=== PATIENT | male | born 1955 | race Caucasian/White ===

== ENCOUNTER 2017-07-13 19:02 | Outpatient (CLI) ==
[2016-10-17 01:16] VITALS: BMI 27.9
== END 2017-07-13 19:03 | disposition home or self-care (01) ==
LOC: AMBL 19:02
PROVIDERS: ATTEND Family Medicine
DX: J44.9 Chronic obstructive pulmonary disease, unspecified (principal)

== ENCOUNTER 2017-07-21 15:55 | Emergency (ER) ==
[2017-07-21 16:00] VITALS: BP 109/69; TEMP 98.3; BMI 26.3
--- NOTE | 2017-07-21 16:31 | ED.PDOC ---
General ED Provider: Dr. JHON DONAHUE Chief Complaint: Hand Pain/Injury Stated Complaint: Stuck hand into basket and cut his right thumb on a knife in the basket. No loss of sensation, mobility, or ROM. Time Seen by Physician: 16:25 Mode of Arrival: Walk-In Information Source: Patient Primary Care Provider: LU MI Nursing and Triage Documentation Reviewed and Agree: Yes Skin Complaint Exam - Laceration/Abrasion/Hand Complaint/Exam Location of Injury: Right, Digit #1 Mechanism of Injury: Laceration Onset/Duration: 1 hour Symptoms Are: Still present Initial Severity: Moderate Current Severity: Moderate Aggravating: Movement Alleviating: Compression Related History: Reports: Right hand dominant Differential Diagnoses: Laceration (right thumb) Review of Systems - Review Of Systems Constitutional: Reports: No symptoms Musculoskeletal: Reports: No symptoms Skin: Reports: Other (laceration across right thumb IP joint, dorsal side) Neurological: Reports: No symptoms All Other Systems: Reviewed and Negative Past Medical History - Past Medical History Previously Healthy: Yes Endocrine: Reports: Dyslipidemia Cardiovascular: Reports: CAD, [place] Respiratory: Reports: COPD, Asthma Hematological: Reports: None Gastrointestinal: Reports: GERD, Liver Genitourinary: Reports: CKD Neuro/Psych: Reports: CVA, Anxiety, Depression Musculoskeletal: Reports: Arthritis Cancer: Reports: None - Surgical History General Surgical History: Reports: Orthopedic (Rt Hip replaced), Hernia Repair ( Umbilical hernia repair), Other - Family History Family History: Reports: Unknown - Social History Smoking Status: Current every day smoker Hx Substance Use: No Alcohol Screening: Occasionally Lives: With family - Immunizations Tetanus Shot up to Date: Yes Influenza Vaccine within 12 Months: No Pneumococcal Vaccine up to Date: No Physical Exam - Physical Exam Appearance: Well-appearing, No pain distress, Well-nourished Ill-appearing: None Pain Distress: None Musculoskeletal: Normal strength, ROM intact, No edema, No calf tenderness Skin: Warm (horizontal laceration across right thumb IP joint, dorsal side), Dry , Normal color Neurological: Sensation intact, Motor intact, Reflexes intact, Cranial nerves intact, Alert, Oriented Psychiatric: Affect appropriate, Mood appropriate Procedures - Laceration/Wound Repair No standard instances Wound Description: Linear Wound Length (cm): 2 cm Wound Depth: shallow Wound Explored: Clean Wound Irrigated: No Wound Prep: Hibiclens Anesthesia: Lidocaine, Digital nerve block Wound Margins: Flaps aligned Wound Repaired With: Sutures Suture Size and Type: ethilon 4-0 Number of Sutures: 3 (Simple interrupted) Layer Closure?: No Sterile Dressing Applied?: Yes (Topical antibiotic ointment, nonstick gauze, & gauze wrap) Splint Applied?: No Sling Applied?: No Critical Care Note - Critical Care Note Total Time (mins): 0 Course - Course Vital Signs: Temp Pulse Resp BP Pulse Ox 07/21/17 15:55 98.3 F 77 20 109/69 91 L Departure - Departure Time of Disposition: 17:05 Disposition: HOME SELF-CARE Discharge Problem: Laceration of finger of left hand without foreign body Instructions: Finger Laceration (ED) Condition: Good Pt referred to PMD for follow-up: Yes (suture removal in 10 days or sooner if any problems) Additional Instructions: keep clean and relatively dry. Topical antibiotic ointment and bandaid 3 times/ day. Allergies/Adverse Reactions: Allergies No Known Allergies Allergy (Verified 10/16/16 23:04) Home Medications: Ambulatory Orders Budesonide/Formoterol Fumarate [Symbicort 160-4.5 Mcg Inhaler] 2 puff IH BID Clonazepam [Klonopin] 0.5 mg PO BID PRN 01/16/14 Finasteride [Proscar] 5 mg PO DAILY 01/16/14 Hydrocodone/Acetaminophen [Hydrocodon-Acetaminophen 5-325] 2 each PO QID Ipratropium/Albuterol Sulfate [Combivent Respimat Inhal [place]] 2 puff IH QID Isosorbide Mononitrate [Isosorbide Mononitrate ER] 30 mg PO DAILY 01/16/14 Tamsulosin HCl [Flomax] 0.4 mg PO BID 01/16/14 Tiotropium [place] [Spiriva] 1 cap IH DAILY 01/16/14 Cholecalciferol (Vitamin D3) [Vitamin D3] 2,000 unit PO DAILY 08/24/14 Theophylline Anhydrous [Theophylline] 200 mg PO BID 08/24/14 Roflumilast [Daliresp] 500 mcg PO DAILY 12/10/14 Fluticasone Propionate [Flonase] 1 spray INH DAILY 04/10/15 Aspirin [Aspirin Chewable] 81 mg PO DAILYWM 10/05/15 Albuterol Sulfate 0.083% Neb [Albuterol 0.083% Neb] 1 vial NEB RTQ6H PRN Albuterol Sulfate [Proair Hfa] 2 puff IH Q4H 10/17/16 Atorvastatin Calcium [Lipitor] 40 mg PO QPM 10/17/16 Metoprolol Tartrate [Lopressor] 12.5 mg PO BID 10/17/16 Omeprazole [Prilosec] 40 mg PO QDAC 10/17/16 Methylprednisolone [Medrol Dosepak] 0 mg PO DIRECTED #1 tab.ds.pk 10/20/16 Cephalexin [Keflex] 500 mg PO BID #10 capsule 07/21/17 Disposition Discussed With: Patient
[2017-07-21] MEDS ORDERED: LIDOCAINE HCL 1% SDV SUBCUT STA (17:20)
[2017-07-21] MEDS ORDERED: LIDOCAINE HCL 1% SDV ONE (17:33)
== END 2017-07-21 17:26 | disposition home or self-care (01) ==
LOC: ED 15:55
DX: S61.011A Laceration without foreign body of right thumb without damage to nail, initial encounter (principal); W26.0XXA Contact with knife, initial encounter; F17.210 Nicotine dependence, cigarettes, uncomplicated
CPT/HCPCS: 96372; 99283

== ENCOUNTER 2017-11-04 10:57 | Outpatient (CLI) | END 2017-11-04 11:16 | disposition home or self-care (01) | LOC: AMBL 10:57 | PROVIDERS: ATTEND Emergency Medicine | DX: R06.02 Shortness of breath (principal); R09.89 Other specified symptoms and signs involving the circulatory and respiratory systems; R53.1 Weakness; J44.9 Chronic obstructive pulmonary disease, unspecified ==

== ENCOUNTER 2017-11-10 08:57 | Emergency (ER) ==
[2017-11-10 09:03] VITALS: TEMP 97.7; BMI 27.2
--- NOTE | 2017-11-10 09:29 | ED.PDOC ---
General ED Provider: Dr. 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 He has sustained an abrassion on the left forearm with some hematoma. State the swelling was worse now better. Denies any other injuries. Time Seen by Physician: 09:00 Mode of Arrival: Walk-In Information Source: Patient Primary Care Provider: LU MANUEL Nursing and Triage Documentation Reviewed and Agree: Yes Reviewed sepsis parameters & appropriate labs ordered?: Yes System Inflammatory Response Syndrome: Not Applicable Sepsis Protocol: For patient's 13 years and over: Temp is 96.8 and below OR 101 and greater Pulse >90 BPM Resp >20/minute Acutely Altered Mental Status Are patient's symptoms suggestive of a new infection, such as: -Pneumonia -Skin, Soft Tissue -Endocarditis -UTI -Bone, Joint Infection -Implantable Device -Acute Abdominal Infection -Wound Infection -Meningitis -Blood Stream Catheter Infection -Unknown System Inflammatory Response Syndrome: Not Applicable Skin Complaint Exam - Lac/Torso/Upper Ext. Complaint/Exam Location of Injury: Left, Forearm Mechanism of Injury: Laceration, Abrasion Onset/Duration: 1 hour Symptoms Are: Still present Initial Severity: Severe Current Severity: Mild Aggravating: Movement Alleviating: Compression Associated Signs and Symptoms: Denies: Fever, Chills, Erythema, Numbness, Tingling Related History: Denies: Anticoagulant use, Occupational injury Upper Extremity/Torso Picture: 1 - 8 cm long irregular skin Abrassions. Differential Diagnoses: Laceration Review of Systems - Review Of Systems Constitutional: Reports: No symptoms Eyes: Reports: No symptoms Ears, Nose, Mouth, Throat: Reports: No symptoms Respiratory: Reports: No symptoms Cardiac: Reports: No symptoms GI: Reports: No symptoms : Reports: No symptoms Musculoskeletal: Reports: No symptoms Skin: Reports: Bruising Neurological: Reports: Anxiety Endocrine: Reports: No symptoms Hematologic/Lymphatic: Reports: No symptoms All Other Systems: Reviewed and Negative Past Medical History - Past Medical History Previously Healthy: Yes Endocrine: Reports: Dyslipidemia Cardiovascular: Reports: CAD, [place] Respiratory: Reports: COPD, Asthma Hematological: Reports: None Gastrointestinal: Reports: GERD, Liver, Other (Multple Colon polyps ) Genitourinary: Reports: CKD Neuro/Psych: Reports: CVA, Anxiety, Depression Musculoskeletal: Reports: Arthritis Cancer: Reports: None - Surgical History General Surgical History: Reports: Orthopedic (Rt Hip replaced), Hernia Repair ( Umbilical hernia repair), Other (colonoscopy ) - Family History Family History: Reports: Unknown - Social History Smoking Status: Current every day smoker, Light tobacco smoker Hx Substance Use: No Alcohol Screening: Occasionally - Immunizations Tetanus Shot up to Date: Yes (2016) Influenza Vaccine within 12 Months: No Pneumococcal Vaccine up to Date: No Physical Exam - Physical Exam Appearance: Well-appearing, No pain distress, Well-nourished Pain Distress: Mild Skin: Warm, Dry Neurological: Cranial nerves intact, Alert, Oriented Psychiatric: Anxious Procedures - Laceration/Wound Repair Left Forearm Wound Description: Irregular Wound Length (cm): 8 Wound Width: 0.5 Wound Depth: 0.2 Wound Explored: Clean Wound Irrigated: No Wound Prep: Hibiclens Wound Repaired With: Steri-strips (10) Sterile Dressing Applied?: Yes Critical Care Note - Critical Care Note Total Time (mins): 0 Course - Course Vital Signs: Temp Pulse Resp BP Pulse Ox 11/10/17 09:35 122/75 11/10/17 08:57 97.7 F 99 H 20 161/71 H 94 L Departure - Departure Time of Disposition: 09:47 Disposition: HOME SELF-CARE Discharge Problem: Contusion Qualifiers: Encounter type: initial encounter Contusion area: forearm Laterality: left Qualified Code(s): S50.12XA - Contusion of left forearm, initial encounter Instructions: Laceration (ED), Contusion in Adults (ED), Abrasion (ED) Condition: Stable Pt referred to PMD for follow-up: Yes IPMP verified?: No Additional Instructions: Take over the counter medications for pain Keep steri strips dry Follow up with PCP in 3 days Return if worse May use ICE Allergies/Adverse Reactions: Allergies No Known Allergies Allergy (Verified 11/10/17 09:06) Home Medications: Ambulatory Orders Budesonide/Formoterol Fumarate [Symbicort 160-4.5 Mcg Inhaler] 2 puff IH BID Clonazepam [Klonopin] 0.5 mg PO BID PRN 01/16/14 Finasteride [Proscar] 5 mg PO DAILY 01/16/14 Hydrocodone/Acetaminophen [Hydrocodon-Acetaminophen 5-325] 2 each PO QID Ipratropium/Albuterol Sulfate [Combivent Respimat Inhal [place]] 2 puff IH QID Isosorbide Mononitrate [Isosorbide Mononitrate ER] 30 mg PO DAILY 01/16/14 Tamsulosin HCl [Flomax] 0.4 mg PO BID 01/16/14 Tiotropium [place] [Spiriva] 1 cap IH DAILY 01/16/14 Cholecalciferol (Vitamin D3) [Vitamin D3] 2,000 unit PO DAILY 08/24/14 Theophylline Anhydrous [Theophylline] 200 mg PO BID 08/24/14 Roflumilast [Daliresp] 500 mcg PO DAILY 12/10/14 Fluticasone Propionate [Flonase] 1 spray INH DAILY 04/10/15 Aspirin [Aspirin Chewable] 81 mg PO DAILYWM 10/05/15 Albuterol Sulfate 0.083% Neb [Albuterol 0.083% Neb] 1 vial NEB RTQ6H PRN Albuterol Sulfate [Proair Hfa] 2 puff IH Q4H 10/17/16 Atorvastatin Calcium [Lipitor] 40 mg PO QPM 10/17/16 Metoprolol Tartrate [Lopressor] 12.5 mg PO BID 10/17/16 Omeprazole [Prilosec] 40 mg PO QDAC 10/17/16 Disposition Discussed With: Patient, Family
[2017-11-10 09:42] VITALS: BP 122/75
== END 2017-11-10 09:57 | disposition home or self-care (01) ==
LOC: ED 08:57
DX: S51.812A Laceration without foreign body of left forearm, initial encounter (principal); S50.12XA Contusion of left forearm, initial encounter; W19.XXXA Unspecified fall, initial encounter; F17.210 Nicotine dependence, cigarettes, uncomplicated
CPT/HCPCS: 99283

== ENCOUNTER 2018-04-02 13:13 | Emergency (ER) ==
[2018-04-02 13:18] VITALS: BP 101/64; TEMP 98.7; BMI 26.1
[2018-04-02] MEDS ORDERED: ASPIRIN CHEWABLE PO STA (14:11)
[2018-04-02] MEDS ORDERED: ASPIRIN CHEWABLE ONE (14:13)
--- NOTE | 2018-04-02 14:25 | ED.PDOC ---
General ED Provider: Dr. YASEMIN MIRELES Chief Complaint: Shortness of Air Stated Complaint: Has been Dyspneic for 24 hrs which worsened Last evening associated with Diaphoresis. Denies Chest pain but states noted aching with RUE aching pain.Came to ER for evaluation and treatment Time Seen by Physician: 13:35 Mode of Arrival: Walk-In Information Source: Patient Exam Limitations: No limitations Primary Care Provider: KYLER ARCE Nursing and Triage Documentation Reviewed and Agree: Yes Reviewed sepsis parameters & appropriate labs ordered?: Yes System Inflammatory Response Syndrome: Not Applicable Sepsis Protocol: For patient's 13 years and over: Temp is 96.8 and below OR 101 and greater Pulse >90 BPM Resp >20/minute Acutely Altered Mental Status Are patient's symptoms suggestive of a new infection, such as: -Pneumonia -Skin, Soft Tissue -Endocarditis -UTI -Bone, Joint Infection -Implantable Device -Acute Abdominal Infection -Wound Infection -Meningitis -Blood Stream Catheter Infection -Unknown Respiratory Complaint Exam - Shortness of Air Complaint/Exam Symptoms Are: Still present Timing: Constant Initial Severity: Mild Current Severity: Moderate Character: Reports: Dyspnea at rest, Dyspnea on exertion, Orthopnea Aggravating: Reports: Recumbent position Alleviating: Reports: None Associated Signs and Symptoms: Reports: Diaphoresis, Dizziness, Edema. Denies: Cough, Wheezing, Chest pain with cough, Chest pain, Fever, Chills, Nasal congestion, Calf pain, Calf swelling, Rapid breathing, Labored breathing, Decreased intake Related History: Denies: Similar episode, Allergic reaction, Recent trauma, Obesity History of Healthcare-Acquired Pneumonia: No Pulmonary Embolism Risk Factors: Reports: None Cardiac Risk Factors: Reports: CAD, Smoking, Elevated lipids, Hypertension Tuberculosis Risk Factors: Reports: None Home Oxygen Use: No Recent Stress Test: No (Unknown) Recent Echo/LV Function: No (Unknown) Stridor Present: No Tracheal Deviation: No Subcutaneous Emphysema: No Accessory Muscle Use: No Diminished Breath Sounds: Yes Prolonged Expiratory Phase: No Unable to Speak Full Sentences: No Fatigue: No Leg Swelling: No Hector's Sign Present: No Grunting Respirations: No Kussmaul Respirations: No Differential Diagnoses: CHF, COPD Exacerbation, [place], Unstable Angina Quality Indicator For Non-Traumatic Chest Pain/Syncope: EKG Performed Related Surgical History: Reports: None Review of Systems - Review Of Systems Constitutional: Reports: No symptoms Eyes: Reports: No symptoms Ears, Nose, Mouth, Throat: Reports: No symptoms Respiratory: Reports: No symptoms, Short of air Cardiac: Reports: No symptoms, Other (diaphoresis). Denies: Palpitations GI: Reports: No symptoms : Reports: No symptoms Musculoskeletal: Reports: No symptoms Skin: Reports: No symptoms Neurological: Reports: No symptoms Endocrine: Reports: No symptoms Hematologic/Lymphatic: Reports: No symptoms All Other Systems: Reviewed and Negative Past Medical History - Past Medical History Previously Healthy: Yes Endocrine: Reports: Dyslipidemia Cardiovascular: Reports: CAD, [place] Respiratory: Reports: COPD, Asthma Hematological: Reports: None Gastrointestinal: Reports: GERD, Liver, Other (Multple Colon polyps ) Genitourinary: Reports: CKD Neuro/Psych: Reports: CVA, Anxiety, Depression Musculoskeletal: Reports: Arthritis Cancer: Reports: None - Surgical History General Surgical History: Reports: Orthopedic (Rt Hip replaced), Hernia Repair ( Umbilical hernia repair), Other (colonoscopy ) - Family History Family History: Reports: Unknown - Social History Smoking Status: Current every day smoker, Light tobacco smoker Hx Substance Use: No Alcohol Screening: Occasionally - Immunizations Influenza Vaccine within 12 Months: No Pneumococcal Vaccine up to Date: No Physical Exam - Physical Exam Appearance: Ill-appearing, Obese Ill-appearing: Severe Pain Distress: Mild Eyes: GREG, EOMI, Conjunctiva clear ENT: Ears normal, Nose normal, Oropharynx normal Respiratory: Airway patent, Breath sounds clear, Breath sounds diminished, Respirations nonlabored Cardiovascular: RRR, Pulses normal, No rub, No murmur GI/: Soft Musculoskeletal: Normal strength Skin: Warm Neurological: Sensation intact, Motor intact, Reflexes intact, Cranial nerves intact, Alert, Oriented Psychiatric: Affect appropriate, Mood appropriate Critical Care Note - Critical Care Note Total Time (mins): 30 (Cardiac/AMI/Stat Transfer/Cardiac phone consult) Course - Course Vital Signs: Temp Pulse Resp BP Pulse Ox 04/02/18 13:14 98.7 F 92 H 20 101/64 93 L Departure - Departure Time of Disposition: 14:25 Disposition: TSF SHORT-TRM HOSP Discharge Problem: STEMI (ST elevation myocardial infarction) Condition: Fair Pt referred to PMD for follow-up: No IPMP verified?: No (N/I) Additional Instructions: Discussed with Dr Dolly Guzman/accepted transfer Nursing staff coordinated Transfer Allergies/Adverse Reactions: Allergies No Known Allergies Allergy (Verified 04/02/18 13:19) Home Medications: Ambulatory Orders Budesonide/Formoterol Fumarate [Symbicort 160-4.5 Mcg Inhaler] 2 puff IH BID Clonazepam [Klonopin] 0.5 mg PO BID PRN 01/16/14 Finasteride [Proscar] 5 mg PO DAILY 01/16/14 Hydrocodone/Acetaminophen [Hydrocodon-Acetaminophen 5-325] 2 each PO QID Ipratropium/Albuterol Sulfate [Combivent Respimat Inhal [place]] 2 puff IH QID Isosorbide Mononitrate [Isosorbide Mononitrate ER] 30 mg PO DAILY 01/16/14 Tamsulosin HCl [Flomax] 0.4 mg PO BID 01/16/14 Tiotropium [place] [Spiriva] 1 cap IH DAILY 01/16/14 Cholecalciferol (Vitamin D3) [Vitamin D3] 2,000 unit PO DAILY 08/24/14 Theophylline Anhydrous [Theophylline] 200 mg PO BID 08/24/14 Roflumilast [Daliresp] 500 mcg PO DAILY 12/10/14 Fluticasone Propionate [Flonase] 1 spray INH DAILY 04/10/15 Aspirin [Aspirin Chewable] 81 mg PO DAILYWM 10/05/15 Albuterol Sulfate 0.083% Neb [Albuterol 0.083% Neb] 1 vial NEB RTQ6H PRN Albuterol Sulfate [Proair Hfa] 2 puff IH Q4H 10/17/16 Atorvastatin Calcium [Lipitor] 40 mg PO QPM 10/17/16 Metoprolol Tartrate [Lopressor] 12.5 mg PO BID 10/17/16 Omeprazole [Prilosec] 40 mg PO QDAC 10/17/16 Disposition Discussed With: Patient, Family
== END 2018-04-02 14:25 | disposition short-term general hospital (02) ==
LOC: ED 13:13
DX: I21.3 ST elevation (STEMI) myocardial infarction of unspecified site (principal); I25.10 Atherosclerotic heart disease of native coronary artery without angina pectoris; I10 Essential (primary) hypertension; F17.210 Nicotine dependence, cigarettes, uncomplicated; R06.02 Shortness of breath; I25.2 Old myocardial infarction; E78.5 Hyperlipidemia, unspecified; N18.9 Chronic kidney disease, unspecified; J44.9 Chronic obstructive pulmonary disease, unspecified; K21.9 Gastro-esophageal reflux disease without esophagitis; Z79.899 Other long term (current) drug therapy; Z86.73 Personal history of transient ischemic attack (TIA), and cerebral infarction without residual deficits
CPT/HCPCS: 36415; 80053; 82550; 82803; 84484; 85025; 93005; 93010; 99285

== ENCOUNTER 2018-04-02 14:23 | Outpatient (CLI) ==
[2018-04-02 13:18] VITALS: BMI 26.1
== END 2018-04-02 14:41 | disposition short-term general hospital (02) ==
LOC: AMBL 14:23
PROVIDERS: ATTEND Emergency Medicine
DX: I21.19 ST elevation (STEMI) myocardial infarction involving other coronary artery of inferior wall (principal)

== ENCOUNTER 2018-05-08 13:19 | Inpatient (IN) ==
[2018-05-08] MEDS ORDERED: DECADRON 4 MG/ML SDV 10 MG in SODIUM CHLORIDE 50 ML IV STA (13:33)
[2018-05-08] MEDS ORDERED: DUONEB NEB STA (13:33)
--- NOTE | 2018-05-08 13:37 | ED.PDOC ---
General ED Provider: Dr. SHAYNE EDWARDS Chief Complaint: Respiratory Complaint Stated Complaint: Short of air Time Seen by Physician: 13:40 Mode of Arrival: Walk-In Information Source: Patient Primary Care Provider: KYLER ARCE Nursing and Triage Documentation Reviewed and Agree: Yes Does patient meet sepsis criteria?: No System Inflammatory Response Syndrome: Not Applicable Sepsis Protocol: For patient's 13 years and over: Temp is 96.8 and below OR 101 and greater Pulse >90 BPM Resp >20/minute Acutely Altered Mental Status Are patient's symptoms suggestive of a new infection, such as: -Pneumonia -Skin, Soft Tissue -Endocarditis -UTI -Bone, Joint Infection -Implantable Device -Acute Abdominal Infection -Wound Infection -Meningitis -Blood Stream Catheter Infection -Unknown Respiratory Complaint Exam - Shortness of Air Complaint/Exam Onset/Duration: last week; worsening since. Cant walk 2 feet without being short of air Symptoms Are: Still present, Worse Timing: Constant Initial Severity: Moderate Current Severity: Severe Character: Reports: Dyspnea at rest Aggravating: Reports: Movement, Deep breaths Alleviating: Reports: None Related History: Reports: Similar episode (Occasionally bad enough to come to ER ; has been admitted before for same) Pulmonary Embolism Risk Factors: Reports: None Cardiac Risk Factors: Reports: CAD, Hypertension Review of Systems - Review Of Systems Constitutional: Reports: Malaise Respiratory: Reports: Cough, Orthopnea, Short of air, Wheezing Cardiac: Reports: No symptoms. Denies: Chest pain, Edema GI: Reports: No symptoms All Other Systems: Reviewed and Negative Past Medical History - Past Medical History Previously Healthy: Yes Endocrine: Reports: Dyslipidemia Cardiovascular: Reports: CAD, IN Respiratory: Reports: COPD, Asthma Hematological: Reports: None Gastrointestinal: Reports: GERD, Liver, Other (Multple Colon polyps ) Genitourinary: Reports: CKD Neuro/Psych: Reports: CVA, Anxiety, Depression Musculoskeletal: Reports: Arthritis Cancer: Reports: None - Surgical History General Surgical History: Reports: Orthopedic (Rt Hip replaced), Hernia Repair ( Umbilical hernia repair), Other (colonoscopy ) - Family History Family History: Reports: Unknown - Social History Smoking Status: Former smoker Hx Substance Use: No Alcohol Screening: Occasionally - Immunizations Influenza Vaccine within 12 Months: No Pneumococcal Vaccine up to Date: No Physical Exam - Physical Exam Appearance: Ill-appearing Ill-appearing: Moderate (with significant SOA) Respiratory: Breath sounds diminished, Wheezes Cardiovascular: Tachycardia Skin: Warm, Dry, Normal color Neurological: Alert, Oriented Psychiatric: Affect appropriate, Mood appropriate Interpretation - Radiology Interpretation Radiology Interpretation By: Radiologist Radiology Results: Positive Exam Interpreted: Portable CXR Xray Comments: atelectasis vs pneumonia (Doubt pneumonia based on clinical picture) - EKG Interpretation Time of EKG #1: 13:44 Rate: Normal Rhythm: Sinus Ectopy: None Archbold: NL ST Segment: Normal Interpretation: No acute changes Critical Care Note - Critical Care Note Total Time (mins): 45 Comments: Workup for Acute COPD exacerbation - treat and stabalize respiratory distress - review labs and radiology. Discuss with Hospitalist for admission and plan. Course - Course Hematology/Chemistry: 05/08/18 13:45 05/08/18 13:45 Orders, Labs, Meds: Lab Review 05/08/18 05/08/18 05/08/18 13:38 13:45 13:45 WBC 9.33 RBC 4.39 L Hgb 13.0 L Hct 39.2 L MCV 89.3 MCH 29.6 MCHC 33.2 RDW Coeff of Jimmie 13.4 Plt Count 293 Immature Gran % (Auto) 0.4 Neut % (Auto) 73.4 Lymph % (Auto) 17.9 Sullivan % (Auto) 5.8 Eos % (Auto) 2.4 Baso % (Auto) 0.1 Immature Gran # (Auto) 0.0 Neut # (Auto) 6.9 Lymph # (Auto) 1.7 Sullivan # (Auto) 0.5 Eos # (Auto) 0.2 Baso # (Auto) 0.0 Puncture Site Rr O2 Saturation 93.0 L ABG pH 7.441 ABG pCO2 43.8 ABG pO2 64.0 L ABG HCO3 29.9 H ABG Total CO2 31 H ABG Base Excess 6 H Davidson Test + FiO2 % 21.0 Sodium 138 Potassium 3.4 L Chloride 102 Carbon Dioxide 30 Anion Gap 9.4 BUN 6 L Creatinine 0.72 Estimated GFR (MDRD) 110.00 BUN/Creatinine Ratio 8.33 Glucose 82 Calcium 9.0 Total Bilirubin 0.5 AST 12 L ALT 6 L Alkaline Phosphatase 80 Troponin I 0.0190 Total Protein 6.1 Albumin 3.1 L Globulin 3.0 Albumin/Globulin Ratio 1.03 Orders Category Date Time Status ADMIT PATIENT INPATIENT .TO MEDSURG (NON-MONITORED ADMISSION 05/08/18 16: 29 Active BED) ABG DRAW REQUEST Stat CARDIO 05/08/18 13:53 Completed EKG-(ED ONLY) Stat CARDIO 05/08/18 13:39 Completed EKG-(IP & OP ONLY) DAILY CARDIO 05/09/18 06:00 Ordered EKG-(IP & OP ONLY) DAILY CARDIO 05/10/18 06:00 Ordered NEBULIZER TREATMENT Routine CARDIO 05/08/18 16:39 Active NEBULIZER TREATMENT Stat CARDIO 05/08/18 13:33 Completed NEBULIZER TREATMENT Stat CARDIO 05/08/18 14:42 Completed OXYGEN Routine CARDIO 05/08/18 16:34 Active INTAKE & OUTPUT Q8HR CARE 05/08/18 16:33 Active REGULAR DIET DIETARY 05/08/18 Dinner Ordered ABG Stat LAB 05/08/18 13:38 Completed CBC W/ AUTO DIFF DAILY@0600 LAB 05/09/18 06:00 Ordered CBC W/ AUTO DIFF DAILY@0600 LAB 05/10/18 06:00 Ordered CBC W/ AUTO DIFF Stat LAB 05/08/18 13:45 Completed COMPREHENSIVE METABOLIC PANEL DAILY@0600 LAB 05/09/18 06:00 Ordered COMPREHENSIVE METABOLIC PANEL DAILY@0600 LAB 05/10/18 06:00 Ordered COMPREHENSIVE METABOLIC PANEL Stat LAB 05/08/18 13:45 Completed TROPONIN I Stat LAB 05/08/18 13:45 Completed Albuterol Sulfate 0.083% Neb [Albuterol 0.083% Neb] MEDS 05/08/18 14:41 Discontinued 1 vial NEB ONCE STA Albuterol Sulfate 0.083% Neb [Albuterol 0.083% Neb] MEDS 05/08/18 20:00 Active 1 vial NEB RTQID Ceftriaxone Sodium [Rocephin] 1 gm MEDS 05/08/18 18:00 Active 0.9 % Sodium Chloride [Sodium Chloride] 50 ml IV DAILY Dexamethasone 4 mg/ml Inj [Decadron 4 mg/ml Sdv] MEDS 05/08/18 13:47 Discontinued 8 mg .ROUTE .STK-MED ONE Dexamethasone 4 mg/ml Inj [Decadron 4 mg/ml Sdv] MEDS 05/08/18 14:09 Discontinued 8 mg IVP ONCE STA Dexamethasone 4 mg/ml Inj [Decadron 4 mg/ml Sdv] 10 mg MEDS 05/08/18 13:33 Discontinued 0.9 % Sodium Chloride [Sodium Chloride] 50 ml IV ONCE Ipratropium/Albuterol Neb [Duoneb] MEDS 05/08/18 13:33 Discontinued 1 vial NEB ONCE STA Levofloxacin/D5w [Levaquin] 500 mg MEDS 05/08/18 17:00 Active Premix 100 ml D5w 1 bag IV DAILY Sodium Chloride 0.9% [Sodium Chloride] 1,000 ml MEDS 05/08/18 17:00 Active IV 75 mls/hr RESUSCITATION STATUS Routine OTHERS 05/08/18 16:33 Ordered CHEST, 1V AP ONLY Stat RADS 05/08/18 13:34 Completed Medications Generic Name Dose Route Start Last Admin Trade Name Freq PRN Reason Stop Dose Admin Hydrocodone Bitart/Acetaminophen 1 tab 05/08/18 17:00 [place] 10-325 PO QID JAMSHID Albuterol Sulfate 1 vial 05/08/18 20:00 Albuterol 0.083% Neb NEB RTQID JAMSHID Aspirin 81 mg 05/09/18 08:00 Aspirin Chewable PO DAILYWM [facility] [place] Budesonide/Formoterol Fumarate 2 puff 05/08/18 17:00 Symbicort 160-4.5 Mcg Inhaler IH BID [facility] Cholecalciferol 2,000 unit 05/09/18 09:00 Vitamin D PO DAILY JAMSHID Clonazepam 0.5 mg 05/08/18 16:42 Klonopin PO BID PRN Anxiety Finasteride 5 mg 05/09/18 09:00 Proscar PO DAILY [facility] [place] Fluticasone Propionate 1 spray 05/09/18 09:00 Flonase CHRISTIAN DAILY [facility] Ceftriaxone Sodium 1 gm/ 50 mls @ 75 mls/hr 05/08/18 18:00 Sodium Chloride IV DAILY JAMSHID Levofloxacin/Dextrose 500 mg/ 100 mls @ 100 mls/hr 05/08/18 17:00 Dextrose IV DAILY JAMSHID Sodium Chloride 1,000 mls @ 75 mls/hr 05/08/18 17:00 Sodium Chloride IV .[id number] JAMSHID Isosorbide Mononitrate 30 mg 05/09/18 09:00 Imdur PO DAILY [facility] Methylprednisolone Sodium Succinate 40 mg 05/08/18 17:00 Solu-Medrol 40 Mg IVP Q6HR JAMSHID Metoprolol Tartrate 12.5 mg 05/08/18 17:00 Lopressor PO BID JAMSHID Omeprazole 40 mg 05/09/18 06:30 Prilosec PO QDAC JAMSHID Roflumilast 500 mcg 05/09/18 09:00 Daliresp PO DAILY JAMSHID Theophylline 200 mg 05/08/18 21:00 Theophylline Er 24hr PO BID JAMSHID Tiotropium [place] 1 cap 05/09/18 09:00 Spiriva IH DAILY JAMSHID Discontinued Medications Generic Name Dose Route Start Last Admin Trade Name Isabel PRN Reason Stop Dose Admin Albuterol Sulfate 1 vial 05/08/18 14:41 05/08/18 14:50 Albuterol 0.083% Neb [facility] 05/08/18 14:42 1 vial ONCE STA Administration Albuterol/Ipratropium 1 vial 05/08/18 13:33 05/08/18 13:49 Duoneb [facility] 05/08/18 13:34 1 vial ONCE STA Administration Dexamethasone Sodium Phosphate 8 mg 05/08/18 14:09 05/08/18 14:11 Decadron 4 Mg/Ml Sdv IVP 05/08/18 14:10 8 mg ONCE STA Administration Dexamethasone Sodium Phosphate 52.5 mls @ 75 mls/hr 05/08/18 13:33 05/08/18 13:48 10 mg/ Sodium Chloride IV 05/08/18 14:14 Not Given ONCE STA Vital Signs: Temp Pulse Resp BP Pulse Ox 05/08/18 13:21 97.6 F 78 24 115/75 92 L Departure - Departure Time of Disposition: 16:51 Disposition: ADMITTED INPATIENT Discharge Problem: COPD exacerbation Condition: Stable Pt referred to PMD for follow-up: Yes (call for appointment) IPMP verified?: No (No narcotics prescribed) Allergies/Adverse Reactions: Allergies No Known Allergies Allergy (Verified 05/08/18 13:21) Home Medications: Ambulatory Orders Budesonide/Formoterol Fumarate [Symbicort 160-4.5 Mcg Inhaler] 2 puff IH BID Clonazepam [Klonopin] 0.5 mg PO BID PRN 01/16/14 Finasteride [Proscar] 5 mg PO DAILY 01/16/14 Hydrocodone/Acetaminophen [Hydrocodon-Acetaminophen 5-325] 2 each PO QID Ipratropium/Albuterol Sulfate [Combivent Respimat Inhal [place]] 2 puff IH QID Isosorbide Mononitrate [Isosorbide Mononitrate ER] 30 mg PO DAILY 01/16/14 Tiotropium [place] [Spiriva] 1 cap IH DAILY 01/16/14 Cholecalciferol (Vitamin D3) [Vitamin D3] 2,000 unit PO DAILY 08/24/14 Theophylline Anhydrous [Theophylline] 200 mg PO BID 08/24/14 Roflumilast [Daliresp] 500 mcg PO DAILY 12/10/14 Fluticasone Propionate [Flonase] 1 spray INH DAILY 04/10/15 Aspirin [Aspirin Chewable] 81 mg PO DAILYWM 10/05/15 Albuterol Sulfate 0.083% Neb [Albuterol 0.083% Neb] 1 vial NEB RTQ6H PRN Albuterol Sulfate [Proair Hfa] 2 puff IH Q4H 10/17/16 Metoprolol Tartrate [Lopressor] 12.5 mg PO BID 10/17/16 Omeprazole [Prilosec] 40 mg PO QDAC 10/17/16
[2018-05-08] MEDS ORDERED: DECADRON 4 MG/ML SDV ONE (13:47)
--- NOTE | 2018-05-08 14:05 | DI ---
Exam: Single view of the chest. Comparison: 10/18/2016. Reason for exam: Short of air. FINDINGS: No pneumothorax, pleural effusion, or focal consolidation. There is blunting of the left costophrenic angle. The cardiac silhouette is unchanged. The imaged osseous structures appear gross ly unremarkable without acute fracture. Impression: 1. Minimal blunting of the left costophrenic angle likely atelectasis/pneumonia. 2. No pneumothorax or pleural effusion.
[2018-05-08] MEDS ORDERED: DECADRON 4 MG/ML SDV IVP STA (14:09)
[2018-05-08] MEDS ORDERED: ALBUTEROL 0.083% NEB NEB STA (14:41)
[2018-05-08] MEDS ORDERED: KLONOPIN PO PRN (16:42)
[2018-05-08] MEDS ORDERED: NORCO 5-325 PO SCH (17:00)
[2018-05-08] MEDS: LEVAQUIN 500 MG in PREMIX 100 ML D5W 1 BAG IV SCH (17:50)
[2018-05-08] MEDS: SOLU-MEDROL 40 MG IVP SCH ×2 (17:50→18:29)
[2018-05-08] MEDS: SODIUM CHLORIDE 1,000 ML IV SCH (17:51)
[2018-05-08] MEDS: SYMBICORT 160-4.5 MCG INHALER IH SCH (18:01)
[2018-05-08] MEDS: NORCO 10-325 PO SCH ×2 (18:01→20:29)
[2018-05-08] MEDS: LOPRESSOR PO SCH ×2 (18:03→20:28)
[2018-05-08 18:13] VITALS: BMI 26.9
[2018-05-08] MEDS: ROCEPHIN 1 GM in SODIUM CHLORIDE 50 ML IV SCH (20:27)
[2018-05-08] MEDS: THEOPHYLLINE ER 24HR PO SCH (20:29)
[2018-05-08] MEDS: FLOMAX PO SCH (20:34)
[2018-05-08] MEDS: ALBUTEROL 0.083% NEB NEB SCH (21:20)
[2018-05-09] MEDS: SOLU-MEDROL 40 MG IVP SCH ×2 (00:24→05:45)
[2018-05-09] MEDS: ALBUTEROL 0.083% NEB NEB SCH ×4 (04:53→22:02)
[2018-05-09] MEDS: PRILOSEC PO SCH (05:57)
[2018-05-09] MEDS: PROSCAR PO SCH (08:54)
[2018-05-09] MEDS: NORCO 10-325 PO SCH ×4 (08:54→20:53)
[2018-05-09] MEDS: VITAMIN D PO SCH (08:55)
[2018-05-09] MEDS: THEOPHYLLINE ER 24HR PO SCH ×2 (08:55→20:52)
[2018-05-09] MEDS: ASPIRIN CHEWABLE PO SCH (08:55)
[2018-05-09] MEDS: FLOMAX PO SCH ×2 (08:56→20:53)
[2018-05-09] MEDS: DALIRESP PO SCH (08:56)
[2018-05-09] MEDS: IMDUR PO SCH (08:57)
[2018-05-09] MEDS: FLONASE NAS SCH (08:57)
[2018-05-09] MEDS: SYMBICORT 160-4.5 MCG INHALER IH SCH ×2 (08:59→20:51)
[2018-05-09] MEDS ORDERED: SPIRIVA IH SCH (09:00)
[2018-05-09] MEDS ORDERED: NON-FORMULARY MEDICATION (Cholecalciferol (Vitamin D3) [Vitamin D3] 2,000 UNIT) PO SCH (09:00)
[2018-05-09] MEDS: ROCEPHIN 1 GM in SODIUM CHLORIDE 50 ML IV SCH (09:04)
[2018-05-09] MEDS: LOPRESSOR PO SCH ×2 (09:13→20:53)
[2018-05-09] MEDS: SODIUM CHLORIDE 1,000 ML IV SCH (09:16)
[2018-05-09] MEDS ORDERED: KLONOPIN PO PRN (09:22)
[2018-05-09] MEDS: LEVAQUIN 500 MG in PREMIX 100 ML D5W 1 BAG IV SCH (10:04)
--- NOTE | 2018-05-09 11:03 | PCM.PROG ---
Attending Provider: ATTENDING PROVIDER: [facility] This patient is seen with Dasha Quesada, Nurse Practitioner. DATE OF SERVICE: 05/09/18 SUBJECTIVE: This 62 year old WHITE/ M was hospitalized 05/08/18. The patient is lying in bed alert. He presented to the ER last night with shortness of breath. He states it is slightly better this morning. He has a long history of COPD and is a smoker. He wears 02 at home. He is having productive whitish sputum. REVIEW OF SYSTEMS: CONSTITUTIONAL: No night sweats. No fatigue, malaise, lethargy. No fever or chills. HEENT: Eyes: No visual changes. No eye pain. No eye discharge. ENT: No runny nose. No epistaxis. No sinus pain. No odynophagia. No congestion. RESPIRATORY: Cough productive of whitish phlegm. No congestion. No hemoptysis. Shortness of breath. CARDIOVASCULAR: No angina symptoms. No CHF symptoms. No atypical chest pain for CAD. No palpitations. No orthopnea.. GASTROINTESTINAL: No abdominal pain. No nausea or vomiting. No diarrhea or constipation. No hematemesis. No hematochezia. GENITOURINARY: No urgency. No frequency. No dysuria. No hematuria. No obstructive symptoms. No discharge. No pain. No significant abnormal bleeding. MUSCULOSKELETAL: No musculoskeletal pain; no joint swelling. NEUROLOGICAL: Awake, alert, oriented to time, place and person. No headache. No neck pain. No syncope. No seizures. No dizziness. PSYCHIATRIC: Not anxious. No depression. No suicidal thoughts. No homicidal thoughts. SKIN: No rash. No lesions. No wounds. ENDOCRINE: No unexplained weight loss. No weight gain. HEMATOLOGIC/LYMPHATIC: No anemia. No purpura. No petechiae. No prolonged or excessive bleeding. No palpable lymph nodes. PHYSICAL EXAMINATION: GENERAL: The patient is awake, alert and oriented, sitting in bed in no distress. VITAL SIGNS: Temperature 97.4 F, Pulse 75, Respiratory Rate 22, BP 138/86, Pulse Ox 96% HEENT: Head normocephalic, atraumatic. Eyes: Extraocular muscles are intact. Pupils are equal, round and reactive to light and accommodation. Ears: No lesions. Nose appeared normal. Throat: No exudate or erythema. NECK: Supple. No JVD, no carotid bruit. No lymphadenopathy or thyromegaly. LUNGS: Diminished breath sounds bilaterally with inspiratory and expiratory wheeze. Percussion note normal. Chest symmetrical. HEART: S1, S2, no S3. No murmurs. No cyanosis or clubbing. No ascites. Pulses: Dorsalis pedis and posterior tibial pulses +1 to +2 both sides. ABDOMEN: Soft. Non-tender. Bowel sounds active. No CVA tenderness. No mass felt. EXTREMITIES: No edema. Full range of motion of all extremities, equal. NEUROLOGIC: No focal deficit. Cranial nerves II through XII are grossly intact. No headache, no double vision or headache. SKIN: Not dry. Intact. Turgor-normal. LYMPHATIC: No palpable lymph nodes/no lymphedema. MUSCULOSKELETAL: Normal joints with no swelling. Muscle tone is normal. LAB REVIEW: 05/09/18 04:45 05/09/18 04:45 05/09/18 04:45: Sodium 139, Potassium 4.6, Chloride 103, Carbon Dioxide 29, Anion Gap 11.6, BUN 10, Creatinine 0.75, Estimated GFR (MDRD) 105.00, BUN/ Creatinine Ratio 13.33, Glucose 152 H D, Calcium 9.3, Total Bilirubin 0.3, AST 11 L, ALT < 6 L, Alkaline Phosphatase 86, Total Protein 6.7, Albumin 3.3 L, Globulin 3.4, Albumin/Globulin Ratio 0.97 05/09/18 04:45: WBC 8.24, RBC 4.85, Hgb 14.2, Hct 43.4, MCV 89.5, MCH 29.3, MCHC 32.7, RDW Coeff of Jimmie 13.3, Plt Count 365, Immature Gran % (Auto) 0.6, Neut % (Auto) 87.9, Lymph % (Auto) 10.7, Reeves % (Auto) 0.8, Eos % (Auto) 0.0, Baso % (Auto) 0.0, Immature Gran # (Auto) 0.1, Neut # (Auto) 7.2 H, Lymph # ( Auto) 0.9, Reeves # (Auto) 0.1 L, Eos # (Auto) 0.0, Baso # (Auto) 0.0 05/08/18 13:45: Sodium 138, Potassium 3.4 L, Chloride 102, Carbon Dioxide 30, Anion Gap 9.4, BUN 6 L, Creatinine 0.72, Estimated GFR (MDRD) 110.00, BUN/ Creatinine Ratio 8.33, Glucose 82, Calcium 9.0, Total Bilirubin 0.5, AST 12 L, ALT 6 L, Alkaline Phosphatase 80, Troponin I 0.0190, Total Protein 6.1, Albumin 3.1 L, Globulin 3.0, Albumin/Globulin Ratio 1.03 05/08/18 13:45: WBC 9.33, RBC 4.39 L, Hgb 13.0 L, Hct 39.2 L, MCV 89.3, MCH 29.6 , MCHC 33.2, RDW Coeff of Jimmie 13.4, Plt Count 293, Immature Gran % (Auto) 0.4, Neut % (Auto) 73.4, Lymph % (Auto) 17.9, Reeves % (Auto) 5.8, Eos % (Auto) 2.4, Baso % (Auto) 0.1, Immature Gran # (Auto) 0.0, Neut # (Auto) 6.9, Lymph # (Auto ) 1.7, Reeves # (Auto) 0.5, Eos # (Auto) 0.2, Baso # (Auto) 0.0 05/08/18 13:38: Puncture Site Rr, O2 Saturation 93.0 L, ABG pH 7.441, ABG pCO2 43.8, ABG pO2 64.0 L, ABG HCO3 29.9 H, ABG Total CO2 31 H, ABG Base Excess 6 H, Davidson Test +, FiO2 % 21.0 ASSESSMENT: 1. ACUTE BRONCHITIS 2. ACUTE COPD EXACERBATION 3. SHORTNESS OF BREATH 4. SEVERE COPD, OXYGEN DEPENDENT 5. CAD 6. HYPERTENSION PLAN: 1. Increase Solu-Medrol 125 q.8hr 2. D/C IV fluids 3. Per patient had heart catheterization at [facility] [place], will get records. 4. PFT Plan and coordination of the patient's care discussed in the presence of It Service Continuity Supervisor and nurse. CONDITION: STABLE SCRIBED BY: EDDA BUSTAMANTE Kiln Worker scribed while in presence of service performed by Dr. Lopes/Dasha Quesada APRN on 05/09/18 ([id number])
[2018-05-09] MEDS ORDERED: SOLU-MEDROL 40 MG IVP SCH (12:00)
[2018-05-09] MEDS: SOLU-MEDROL 125 MG IVP SCH ×2 (12:17→17:02)
--- NOTE | 2018-05-09 13:35 | PN ---
DATE OF SERVICE: 05/08/18 - ADMITTING NOTE REASON FOR HOSPITALIZATION: Respiratory failure, COPD, acute exacerbation. HISTORY OF PRESENT ILLNESS: 62-year-old white male, who quit smoking two weeks ago has started having shortness of breath with cough for the past eight days. The patient was brought to the emergency room by his with shortness of air. PHYSICAL EXAMINATION: HEENT: Head normocephalic, atraumatic. Eyes: Extraocular muscles are intact. Pupils are equal, round and reactive to light and accommodation. Ears: No lesions. Nose appeared normal. Throat: No exudate or erythema. NECK: Supple. No JVD, no carotid bruit. No lymphadenopathy or thyromegaly. LUNGS: Decreased breath sounds, increased AP diameter of the chest. The patient has barrel chest. Clear to auscultation. Percussion note normal. Chest symmetrical. HEART: S1, S2, no S3. Distant heart sounds. No murmurs. No cyanosis or clubbing. No ascites. Pulses: Dorsalis pedis and posterior tibial pulses +1 to +2 both sides. ABDOMEN: Soft. Nontender. Bowel sounds active. No CVA tenderness. No mass felt. EXTREMITIES: No edema. Full range of motion of all extremities, equal. NEUROLOGIC: No focal deficit. Cranial nerves II through XII are grossly intact. No headache, no double vision or headache. SKIN: Not dry. Intact. Turgor - normal. LYMPHATIC: No palpable lymph nodes/no lymphedema. MUSCULOSKELETAL: Normal joints with no swelling. Muscle tone is normal. LABS/RADIOLOGY: Hemoglobin 13, hematocrit 39, WBC 9,000, normal differential. ABG p02 64, pc02 43, pH 7.44, 93% saturation. Troponin, CK-MB all negative. Creatinine 0.7, BUN 6. Chest x-ray COPD, possibility of early pneumonia with atelectasis. ASSESSMENT: 1. PNEUMONITIS/PROBABLY ACUTE BRONCHITIS WITH SEVERE CHRONIC LUNG DISEASE. PLAN: 1. Continue all his medications including Metoprolol, nebs treatment, Daliresp , Hydrocodone, Tamsulosin. 2. Add steroids, Albuterol. 3. IV antibiotics 4. Neb treatments 5. Counseling for smoking done. 6. Advised pulmonary rehabilitation. Pulmonary rehab discussed. 7. Counseling for smoking done. TIME SPENT: More than 30 minutes. Plan and coordination of the patient's care discussed in the presence of nurse. LUIZ
--- NOTE | 2018-05-09 14:22 | RS.PTINEVL ---
Subjective - Patient information Date of Evaluation: 05/09/18 Date of Arrival on Unit: 05/08/18 Admitted From:: Home Diagnosis: acute COPD exacerbation Usual Living Arrangement: girlfriend Living Arrangement Comments: lives in home with 4 steps to enter with HR. Home Environment: House, Stairs (few), Rail Medical History: Hypertension, CVA/TIA, COPD, Arthritis Medical History Comments:: CAD, NM, GERD, CKD, anxiety, depression, LATEX ALLERGY?: No Surgical History: Hip Replacement Surgical History Comments:: hernia repair Medications: see chart Subjective Information/ Patient Comments:: pt states that he wants to try to walk, states he needs to build his strength up. - Level of function Abilities prior to this admission: prior to admit pt was getting weaker requiring more assist with ADL's and amb. pt was only able to amb short distances with cane and had a episode of falling. Current Level of Function: Partially Dependent Current Equipment Used at Home: oxygen-3L NC at all times, shower chair, cane Interventions - Objective Patient Orientation: Person, Place, Time, Situation Current Interventions: IV's, Oxygen, Telemetry Range of Motion - ROM Right Upper Extremity AROM: WFL's Left Upper Extremity AROM: WFL's Right Lower Extremity AROM: WFL's Left Lower Extremity AROM: WFL's Muscle Strength - Muscle Strength Right Upper Extremity Strength: Mild Weakness (grossly 4/5) Left Upper Extremity Strength: Mild Weakness (grossly 4/5) Right Lower Extremity Strength: Mild Weakness (hip flex 4-/5, knee flex/ext 4/5 , ankle DF/PF 4/5) Left Lower Extremity Strength: Mild Weakness (hip flex 4-/5, knee flex/ext 4/5, ankle DF/PF 4/5) Sensation - Sensation Right Upper Extremity Sensation: Impaired (Reports n/t B hands) Left Upper Extremity Sensation: Impaired Right Lower Extremity Sensation: Intact/Normal Left Lower Extremity Sensation: Intact/Normal Palpation Palpation Findings: None/Normal Balance - Sitting Balance and Reactions Static Sitting Balance: Good Dynamic Sitting Balance: Good - Standing Balance and Reactions Static Standing Balance: Fair Dynamic Standing Balance: Poor Standing Equilibrium Reactions: Delayed Left, Delayed Right Standing Protective Reactions: Delayed Left, Delayed Right Functional Mobility - Bed Mobility Rolling R/L: Independent Scooting: Supervision Supine to Sit: CGA Sit to Supine: CGA - Transfers Sit to Stand: CGA Stand to Sit: CGA - Safety Awareness Safety Awareness: Fair ART INDEX SCORE: n/a Ambulation - Ambulation Assistive Device Used: Rolling Walker Orthotic/Prosthetic Device: No Distance: 85ft Assistance needed with Ambulation: CGA, Min Assist Quality of Ambulation: pt amb with 02 at 2 liters Gait Deviations: Forward posture, Short stride Ambulation Comments: pt amb with decreased step length, flexed posture. pt required 2 episodes of standing rest periods. Factors Affecting Ambulation: Decreased Balance, Breathing/O2 Saturation, Weakness, Dizziness, Decreased Safety, Limited Endurance Treatment time - Units charged Gait trainin - Time with patient Length of Evaluation: 18 Total treatment time: 31 Patient Education - Education Patient Education: Activity Modification, Education of Plan of Care Teaching Recipient: Patient Teaching Methods: Discussion (discussion regarding POC and PLB) Assessment - Assessment Problem List:: Decreased level of function, Requires training/education, Decreased safety/Risk of falls, Weakness, Pain limits previous level of function Rehab Potential: Good Further Therapy Indicated?: Yes Candidate for Swing Bed for Therapy Services?: Feel pt may not be candidate for swing bed due to inablility to tolerate extended periods of PT, would reeval if swing bed eval needed. Evaluation Complexity: HISTORY: Medium (COPD, NM, HTN, OA), EXAM OF BODY SYSTEMS : Medium (strength, balance, gait, transfers, posture), CLINICAL PRESENTATION: Medium (evolving), CLINICAL DECISION MAKING: Low Short Term Goals GOAL #1: pt independent with rolling and scooting up in bed Goal to be met by: 05/12/18 GOAL #2: pt transfers sup to/from sit to/from stand SBA Goal to be met by: 05/12/18 GOAL #3: pt amb with rwx 110ft with CGA with O2 with no LOB Goal to be met by: 05/12/18 GOAL #4: pt with improved BLE strength 4 to 4+/5 Goal to be met by: 05/12/18 Art Coordinator Goals GOAL #1: pt transfer sup to/from sit to/from stand SBA to independent Goal to be met by: 05/14/18 GOAL #2: pt amb with AAD 150ft with no LOB no rest periods Goal to be met by: 05/14/18 GOAL #3: pt ascend/descend 4 steps with HR SBA Goal to be met by: 05/14/18 Plan Plan of Care: Therapeutic EX, Therapeutic Activity Other:: gait training Frequency of Treatment: 1-2 X day, as tolerated Duration of Treatment: 5 days Anticipated Discharge Destination: Home Treatment Diagnosis (ICD 10 Codes): R 26.2, difficulty walking. M62.81 muscle weakness. R26.81 balance impaired Has the Physician been added for Co-signature?: Yes
[2018-05-09] MEDS: KLONOPIN PO SCH (20:51)
[2018-05-10] MEDS: SOLU-MEDROL 125 MG IVP SCH ×4 (00:12→21:38)
[2018-05-10] MEDS: ALBUTEROL 0.083% NEB NEB SCH (05:02)
[2018-05-10] MEDS: PRILOSEC PO SCH (06:06)
[2018-05-10] MEDS: FLONASE NAS SCH (08:51)
[2018-05-10] MEDS: ROCEPHIN 1 GM in SODIUM CHLORIDE 50 ML IV SCH (08:51)
[2018-05-10] MEDS: SYMBICORT 160-4.5 MCG INHALER IH SCH ×2 (08:51→20:29)
[2018-05-10] MEDS: NORCO 10-325 PO SCH ×4 (08:51→20:29)
[2018-05-10] MEDS: KLONOPIN PO SCH ×2 (08:52→20:29)
[2018-05-10] MEDS: FLOMAX PO SCH ×2 (08:52→20:30)
[2018-05-10] MEDS: THEOPHYLLINE ER 24HR PO SCH ×2 (08:52→20:29)
[2018-05-10] MEDS: IMDUR PO SCH (08:53)
[2018-05-10] MEDS: ASPIRIN CHEWABLE PO SCH (08:53)
[2018-05-10] MEDS: DALIRESP PO SCH (08:53)
[2018-05-10] MEDS: PROSCAR PO SCH (08:53)
[2018-05-10] MEDS: LOPRESSOR PO SCH ×2 (08:53→20:30)
[2018-05-10] MEDS: VITAMIN D PO SCH (08:53)
[2018-05-10] MEDS: LEVAQUIN 500 MG in PREMIX 100 ML D5W 1 BAG IV SCH (09:34)
--- NOTE | 2018-05-10 11:11 | PCM.PROG ---
Attending Provider: ATTENDING PROVIDER: [facility] This patient is seen with Dasha Quesada, Nurse Practitioner. DATE OF SERVICE: 05/10/18 SUBJECTIVE: This 62 year old WHITE/ M was hospitalized 05/08/18. The patient is lying in bed, alert. Shortness of breath somewhat improved, still wheezing. He has been eating well. REVIEW OF SYSTEMS: CONSTITUTIONAL: No night sweats. No fatigue, malaise, lethargy. No fever or chills. HEENT: Eyes: No visual changes. No eye pain. No eye discharge. ENT: No runny nose. No epistaxis. No sinus pain. No odynophagia. No congestion. RESPIRATORY: Positive for cough, wheeze and shortness of breath. No hemoptysis. CARDIOVASCULAR: No angina symptoms. No CHF symptoms. No atypical chest pain for CAD. No palpitations. No orthopnea.. GASTROINTESTINAL: No abdominal pain. No nausea or vomiting. No diarrhea or constipation. No hematemesis. No hematochezia. GENITOURINARY: No urgency. No frequency. No dysuria. No hematuria. No obstructive symptoms. No discharge. No pain. No significant abnormal bleeding. MUSCULOSKELETAL: No musculoskeletal pain; no joint swelling. NEUROLOGICAL: Awake, alert, oriented to time, place and person. No headache. No neck pain. No syncope. No seizures. No dizziness. PSYCHIATRIC: Not anxious. No depression. No suicidal thoughts. No homicidal thoughts. SKIN: No rash. No lesions. No wounds. ENDOCRINE: No unexplained weight loss. No weight gain. HEMATOLOGIC/LYMPHATIC: No anemia. No purpura. No petechiae. No prolonged or excessive bleeding. No palpable lymph nodes. PHYSICAL EXAMINATION: GENERAL: The patient is awake, alert and oriented, lying in bed in no distress. VITAL SIGNS: Temperature 97.8 F, Pulse 77, Respiratory Rate 22, BP 112/69, Pulse Ox 96% HEENT: Head normocephalic, atraumatic. Eyes: Extraocular muscles are intact. Pupils are equal, round and reactive to light and accommodation. Ears: No lesions. Nose appeared normal. Throat: No exudate or erythema. NECK: Supple. No JVD, no carotid bruit. No lymphadenopathy or thyromegaly. LUNGS: Diminished breath sounds bilaterally with inspiration and expiratory wheeze. Percussion note normal. Chest symmetrical. HEART: S1, S2, no S3. No murmurs. No cyanosis or clubbing. No ascites. Pulses: Dorsalis pedis and posterior tibial pulses +1 to +2 both sides. ABDOMEN: Soft. Non-tender. Bowel sounds active. No CVA tenderness. No mass felt. EXTREMITIES: No edema. Full range of motion of all extremities, equal. NEUROLOGIC: No focal deficit. Cranial nerves II through XII are grossly intact. No headache, no double vision or headache. SKIN: Not dry. Intact. Turgor-normal. LYMPHATIC: No palpable lymph nodes/no lymphedema. MUSCULOSKELETAL: Normal joints with no swelling. Muscle tone is normal. LAB REVIEW: 05/10/18 04:15 05/10/18 04:15 05/10/18 04:15: Sodium 139, Potassium 3.9, Chloride 106, Carbon Dioxide 24, Anion Gap 12.9, BUN 14, Creatinine 0.71, Estimated GFR (MDRD) 112.00, BUN/ Creatinine Ratio 19.71, Glucose 135 H, Calcium 8.9, Total Bilirubin 0.2, AST 9 L , ALT 6 L, Alkaline Phosphatase 72, Total Protein 5.8, Albumin 3.1 L, Globulin 2.7, Albumin/Globulin Ratio 1.15 05/10/18 04:15: WBC 19.16 H D, RBC 4.57 L, Hgb 13.4 L, Hct 40.6 L, MCV 88.8, MCH 29.3, MCHC 33.0, RDW Coeff of Jimmie 13.3, Plt Count 324, Immature Gran % (Auto ) 0.5, Neut % (Auto) 91.9, Lymph % (Auto) 5.9 L, [place] % (Auto) 1.5, Eos % (Auto ) 0.0, Baso % (Auto) 0.2, Immature Gran # (Auto) 0.1, Neut # (Auto) 17.6 H, Lymph # (Auto) 1.1, [place] # (Auto) 0.3 L, Eos # (Auto) 0.0, Baso # (Auto) 0.0 05/09/18 04:37: Theophylline 2.6 L ASSESSMENT: 1. ACUTE BRONCHITIS 2. ACUTE COPD EXACERBATION 3. SHORTNESS OF BREATH 4. SEVERE COPD, OXYGEN DEPENDENT 5. CAD 6. HYPERTENSION PLAN: 1. Change Albuterol to Xopenex 2. Change Solu-Medrol to q.8hr Plan and coordination of the patient's care discussed in the presence of Mixed Animal Veterinarian and nurse. CONDITION: Stable SCRIBED BY: EDDA BUSTAMANTE Sales Project Engineer scribed while in presence of service performed by Dr. Lopes/Dasha Quesada APRN on 05/10/18 (2050)
[2018-05-10] MEDS: XOPENEX 1.25 MG NEB SCH ×3 (11:12→23:45)
--- NOTE | 2018-05-10 11:40 | HP ---
DATE OF SERVICE: 05/08/18 HISTORY OF PRESENT ILLNESS: This is a 62-year-old white male who presented to the emergency room with shortness of breath, cough, congestion. He stated he had been congested for the past three days. He might have ran a low grade fever at home, he wasn't sure. PAST MEDICAL HISTORY: COPD ANXIETY AND DEPRESSION BPH CHRONIC LOW BACK PAIN, LEG PAIN, [place] CORONARY ARTERY DISEASE ASTHMA GERD HYPERTENSION NH PER PATIENT HISTORY OF MULTIPLE COLON POLYPS HISTORY OF CVA ARTHRITIS CHRONIC KIDNEY DISEASE PAST SURGICAL HISTORY: CARDIAC CATHETERIZATION IN MARCH OF 2018. EJECTION FRACTION WAS GREATER THAN 55% . HE HAD NO BLOCKAGES AT THAT TIME. TOTAL RIGHT HIP REPLACEMENT UMBILICAL HERNIA REPAIR COLONOSCOPY REVIEW OF SYSTEMS: CONSTITUTIONAL: Positive for fatigue. No night sweats. No malaise, lethargy. No fever or chills. HEENT: Eyes: No visual changes. No eye pain. No eye discharge. ENT: No runny nose. No epistaxis. No sinus pain. No sore throat. No odynophagia. No ear pain. No congestion. RESPIRATORY: Positive for shortness of breath, cough and congestion. No hemoptysis. CARDIOVASCULAR: No angina symptoms. No CHF symptoms. No atypical chest pain for CAD. No palpitations. No PND. No orthopnea. GASTROINTESTINAL: No abdominal pain. No nausea or vomiting. No diarrhea or constipation. No hematemesis. No hematochezia. GENITOURINARY: No urgency. No frequency. No dysuria. No hematuria. No obstructive symptoms. No discharge. No pain. No significant abnormal bleeding. MUSCULOSKELETAL: No musculoskeletal pain. No joint swelling. No arthritis. NEUROLOGICAL: No headache. No neck pain. No syncope. No seizures. No dizziness. PSYCHIATRIC: Not anxious. No depression. No suicidal thoughts. No homicidal thoughts. SKIN: No rash. No lesions. No wounds. ENDOCRINE: No unexplained weight loss. No weight gain. HEMATOLOGIC/LYMPHATIC: No anemia. No purpura. No petechiae. No prolonged or excessive bleeding. No palpable lymph nodes. PERSONAL/FAMILY/SOCIAL HISTORY: The patient lives with a friend. He was a long-term heavy smoker. [facility] sees [facility]. 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 He sees his plate developer at the [facility]. MEDICATIONS: (HOME) Budesonide/Formoterol two puff IH b.i.d. Isosorbide Mononitrate Hydrocodone/Acetaminophen two each p.o. q.i.d. Ipratropium/Albuterol two puff IH q.i.d. Proscar 5 mg p.o. daily Klonopin 0.5 mg p.o. b.i.d. p.r.n. Theophylline 200 mg p.o. b.i.d. Cholecalciferol 2,000 unit p.o. daily Daliresp 500 mcg p.o. daily Flonase one spray INH daily Aspirin 81 mg p.o. daily with meal Prilosec 40 mg p.o. q.d a.c. Lopressor 12.5 mg p.o. b.i.d. ProAir HFA 2 puff IH q.4h Albuterol one vial neb RT q.6h p.r.n. Flomax 0.4 mg p.o. b.i.d. ALLERGIES: NKDA PHYSICAL EXAMINATION: V/S: Temperature 97.6, heart rate 78, respirations 24, BP 115/75, pulse ox 92% . The patient normally wears oxygen anywhere from 2 to 3L at home. HEENT: Head normocephalic, atraumatic. Eyes: Extraocular muscles are intact. Pupils are equal, round and reactive to light and accommodation. Ears: No lesions. Nose appeared normal. Throat: No exudate or erythema. NECK: Supple. No JVD, no carotid bruit. No lymphadenopathy or thyromegaly. LUNGS: Severely diminished breath sounds with bilateral rhonchi and expiratory wheezing. Percussion note normal. Chest symmetrical. HEART: Heart sounds are regular. S1, S2, no S3. No murmurs. No cyanosis or clubbing. No ascites. Pulses: Dorsalis pedis and posterior tibial pulses +1 to +2 bilaterally. ABDOMEN: Soft. Nontender. Bowel sounds active. No CVA tenderness. No mass felt. EXTREMITIES: No edema. Full range of motion of all extremities, equal. NEUROLOGIC: No focal deficit. Cranial nerves II through XII are grossly intact. No headache, no double vision or headache. SKIN: Not dry. Intact. Turgor - normal. LYMPHATIC: No palpable lymph nodes/no lymphedema. MUSCULOSKELETAL: Normal joints with no swelling. Muscle tone is normal. LABS/RADIOLOGY: EKG showed normal sinus rhythm. Chest x-ray bilateral atelectasis versus pneumonia. White count 9.33, hemoglobin 13.0, hematocrit 39.2, platelets 293. ABGs on room air 02 sat 93, pH 7.441, pc02 43.8, p02 64, bicarb 29.9, total c02 31 with base excess of 6. Sodium 138, potassium 3.4, carbon dioxide 30, BUN 6, creatinine 0.72, glucose 82, AST 12, ALT 6, alkaline phosphatase 80. ASSESSMENT: 1. SHORTNESS OF BREATH 2. ACUTE BRONCHITIS 3. ACUTE COPD EXACERBATION 4. CORONARY ARTERY DISEASE 5. COPD 6. ASTHMA 7. GERD 8. CHRONIC KIDNEY DISEASE 9. HISTORY OF CVA 10. ANXIETY 11. DEPRESSION 12. OSTEOARTHRITIS 13. OBESITY PLAN: 1. We will admit the patient. 2. Routine telemetry orders. 3. CBC, CMP daily. 4. Theophylline level today. 5. Continue his home medications. 6. Start him on Rocephin 1 gm IV daily. 7. Albuterol nebulizer treatments q.i.d. scheduled. 8. IV fluids NS at 75 cc/hr for 24 hours then stop. 9. Solu-Medrol 40 mg IV q.6hr in the emergency room. We will change this to 125 mg IV q.8hr. 10. Regular low sodium diet. 11. Oxygen 2 to 3L as needed 12. Will get the records from his heart catheterization from [facility] two months ago, which showed an ejection fraction of 55%, no blockages. 13. Find out his last PFT and order one. 14. Will follow closely. TIME SPENT: More than 70 minutes. LUIZ
--- NOTE | 2018-05-10 11:55 | RS.OTINEVL ---
Subjective - Patient information Date of Evaluation: 05/10/18 Date of Arrival on Unit: 05/09/18 Usual Living Arrangement: With Spouse Living Arrangement Comments: Pt living at home in a house with his girlfriend, with steps with a rail. Pt uses a shower chair to shower with difficulty. Medical History: CVA/TIA, COPD, Arthritis Medical History Comments:: Irregular Heart Beat, Stent in heart, MSD, Appendectomy, COPD, HTN, Hypotremia, Hypercholesterolemia. LATEX ALLERGY?: No Surgical History: Hip Replacement Surgical History Comments:: appendectomy, R FLY, Subjective Information/ Patient Comments:: "I want to my girlfriend but we will lose money each month." "You girls have been so good to me." - Level of function Abilities prior to this admission: Pt living at home with his girlfriend. Pt struggles to get his shower done on a shower chair. Pt is able to dress himself. Current Level of Function: Partially Dependent Current Equipment Used at Home: oxygen-3L NC at all times, shower chair, cane Interventions - Objective Patient Orientation: Person, Place, Situation Current Interventions: IV's, Oxygen, Telemetry Observation: Pt is anxious and SOA. Pt tolerated functional mobility with RW CGA. Pt became SOA with walking. Interventions - ROM Right Upper Extremity AROM: Moderate limitation Left Upper Extremity AROM: Moderate limitation - Strength Right Upper Extremity Strength: Mild Weakness Left Upper Extremity Strength: Mild Weakness - Sensation Right Upper Extremity Sensation: Intact/Normal Left Upper Extremity Sensation: Intact/Normal Balance - Sitting Balance Static Sitting Balance: Good Dynamic Sitting Balance: Good - Standing Balance Static Standing Balance: Poor Dynamic Standing Balance: Poor - Comments Balance Assessment Comments: Poor- ADL Skills - Self Feeding Self Feeding: Independent - Grooming Grooming: Supervision - Toilet Management Toileting Management: CGA Functional Mobility - Bed Mobility Rolling R/L: Independent Scooting: Independent - Transfers Sit to Stand: CGA Stand to Sit: CGA Stand Pivot Transfers: CGA - Ambulation Weight Bearing Status: FWB Assistive Device Used: Rolling Walker Assistance needed with Ambulation: CGA - Safety Awareness Safety Awareness: Good ART INDEX SCORE: . Additional Treatment Performed - Time with patient Length of Evaluation: 22 Total treatment time: 25 Activities Patient Interests:: Watching Television Plan Plan of Care: Therapeutic EX, Neuromuscular Re-Educ, Therapeutic Activity, Self- Care/Home Management Frequency of Treatment: 1-2 X day, as tolerated Duration of Treatment: 1 Week Anticipated Discharge Destination: Home Treatment Diagnosis (ICD 10 Codes): M62.81 muscle weakness, Z74.0 Reduced mobility, Z74.1 Need assistance with personal care. Has the Physician been added for Co-signature?: Yes
--- NOTE | 2018-05-10 14:29 | PN ---
DATE OF SERVICE: 05/09/18 SUBJECTIVE: The patient was seen and examined with the nurse practitioner. The patient was hospitalized with acute bronchitis, acute exacerbation of COPD. The patient's condition has improved. He had a cath done at [facility] which was normal in March 2018. Counseling for smoking done. PLAN: 1. Continue steroids, antibiotics. CONDITION: Improving. TIME SPENT: More than 30 minutes. Plan and coordination of the patient's care discussed in the presence of nurse. LUIZ
[2018-05-11] MEDS: XOPENEX 1.25 MG NEB SCH ×4 (05:10→23:40)
[2018-05-11] MEDS: SOLU-MEDROL 125 MG IVP SCH ×3 (05:39→20:50)
[2018-05-11] MEDS: PRILOSEC PO SCH (05:39)
[2018-05-11] MEDS: THEOPHYLLINE ER 24HR PO SCH ×2 (09:11→20:48)
[2018-05-11] MEDS: FLONASE NAS SCH (09:11)
[2018-05-11] MEDS: SYMBICORT 160-4.5 MCG INHALER IH SCH ×2 (09:11→20:46)
[2018-05-11] MEDS: ROCEPHIN 1 GM in SODIUM CHLORIDE 50 ML IV SCH (09:11)
[2018-05-11] MEDS: LOPRESSOR PO SCH ×2 (09:12→20:48)
[2018-05-11] MEDS: VITAMIN D PO SCH (09:12)
[2018-05-11] MEDS: DALIRESP PO SCH (09:12)
[2018-05-11] MEDS: PROSCAR PO SCH (09:12)
[2018-05-11] MEDS: ASPIRIN CHEWABLE PO SCH (09:12)
[2018-05-11] MEDS: IMDUR PO SCH (09:12)
[2018-05-11] MEDS: FLOMAX PO SCH ×2 (09:13→20:50)
[2018-05-11] MEDS: NORCO 10-325 PO SCH ×4 (09:39→20:49)
[2018-05-11] MEDS: KLONOPIN PO SCH ×2 (09:40→20:49)
[2018-05-12] MEDS: XOPENEX 1.25 MG NEB SCH (04:55)
[2018-05-12] MEDS: PRILOSEC PO SCH (05:33)
[2018-05-12] MEDS: SOLU-MEDROL 125 MG IVP SCH ×2 (05:33→07:11)
[2018-05-12 06:28] VITALS: BP 137/84; TEMP 97.8
[2018-05-12] MEDS: SYMBICORT 160-4.5 MCG INHALER IH SCH (08:06)
[2018-05-12] MEDS: ASPIRIN CHEWABLE PO SCH (08:07)
[2018-05-12] MEDS: VITAMIN D PO SCH (08:07)
[2018-05-12] MEDS: THEOPHYLLINE ER 24HR PO SCH (08:07)
[2018-05-12] MEDS: FLONASE NAS SCH (08:07)
[2018-05-12] MEDS: IMDUR PO SCH (08:08)
[2018-05-12] MEDS: DALIRESP PO SCH (08:08)
[2018-05-12] MEDS: NORCO 10-325 PO SCH (08:08)
[2018-05-12] MEDS: LOPRESSOR PO SCH (08:08)
[2018-05-12] MEDS: PROSCAR PO SCH (08:08)
[2018-05-12] MEDS: FLOMAX PO SCH (08:08)
[2018-05-12] MEDS: KLONOPIN PO SCH (08:09)
[2018-05-12] MEDS: ROCEPHIN 1 GM in SODIUM CHLORIDE 50 ML IV SCH (08:16)
--- NOTE | 2018-05-13 11:34 | RS.OTQKDC ---
OT Discharge Date of Discharge: 05/13/18 Reason for Discharge: Pt discharged to home.
--- NOTE | 2018-05-13 12:56 | PN ---
DATE OF SERVICE: 05/11/18 SUBJECTIVE: The patient was hospitalized with acute exacerbation of COPD. The patient's condition seems to be improving. He is still having difficulty type coughing. WBC is up because of steroids. REVIEW OF SYSTEMS: CONSTITUTIONAL: No night sweats. No fatigue, malaise, lethargy. No fever or chills. HEENT: Eyes: No visual changes. No eye pain. No eye discharge. ENT: No runny nose. No epistaxis. No sinus pain. No sore throat. No odynophagia. No congestion. RESPIRATORY: Mild cough having some difficulty coughing up but much improvement , no congestion. No hemoptysis. No shortness of breath. CARDIOVASCULAR: No angina symptoms. No CHF symptoms. No atypical chest pain for CAD. No palpitations. No orthopnea. GASTROINTESTINAL: No abdominal pain. No nausea or vomiting. No diarrhea or constipation. No hematemesis. No hematochezia. GENITOURINARY: No urgency. No frequency. No dysuria. No hematuria. No obstructive symptoms. No discharge. No pain. No significant abnormal bleeding. MUSCULOSKELETAL: No musculoskeletal pain; no joint swelling. NEUROLOGICAL: No headache. No neck pain. No syncope. No seizures. No dizziness. PSYCHIATRIC: Not anxious. No depression. No suicidal thoughts. No homicidal thoughts. SKIN: No rash. No lesions. No wounds. ENDOCRINE: No unexplained weight loss. No weight gain. HEMATOLOGIC/LYMPHATIC: No anemia. No purpura. No petechiae. No prolonged or excessive bleeding. No palpable lymph nodes. PHYSICAL EXAMINATION: VITAL SIGNS: Temperature 97.6, pulse 75, respiratory rate 20, Blood pressure 118/70 and pulse 98%. HEENT: Head normocephalic, atraumatic. Eyes: Extraocular muscles are intact. Pupils are equal, round and reactive to light and accommodation. Ears: No lesions. Nose appeared normal. Throat: No exudate or erythema. NECK: Supple. No JVD, no carotid bruit. No lymphadenopathy or thyromegaly. LUNGS: Decreased breath sounds. Clear to auscultation. Percussion note normal. Chest symmetrical. HEART: S1, S2, no S3. No murmurs. No cyanosis or clubbing. No ascites. Pulses: Dorsalis pedis and posterior tibial pulses +1 to +2 both sides. ABDOMEN: Soft. Nontender. Bowel sounds active. No CVA tenderness. No mass felt. [place] shaped chest. EXTREMITIES: No edema. Full range of motion of all extremities, equal. NEUROLOGIC: No focal deficit. Cranial nerves II through XII are grossly intact. No headache, no double vision or headache. SKIN: Not dry. Intact. Turgor - normal. LYMPHATIC: No palpable lymph nodes/no lymphedema. MUSCULOSKELETAL: Normal joints with no swelling. Muscle tone is normal. LABS: hgb 13, hct 40, WBC 28247 normal differential, creatinine 0.7, BUN 14, potassium 3.9. ASSESSMENT: 1. Acute respiratory failure with severe chronic lung disease PLAN: 1. Continue steroids 2. Antibiotics 3. NEBS 4. Has quit smoking for two week, encouraged counseling for smoking done. CONDITION: Stable. TIME SPENT: More than 30 minutes. Plan and coordination of the patient's care discussed in the presence of nurse. LUIZ
--- NOTE | 2018-05-13 13:09 | PN ---
DATE OF SERVICE: 05/12/18 SUBJECTIVE: The patient was hospitalized with acute bronchitis and exacerbation of COPD. The patient's condition has improved with Rocephin and steroids and NEBS treatment. The patient has quit smoking two weeks ago. The patient is up and about. REVIEW OF SYSTEMS: CONSTITUTIONAL: No night sweats. No fatigue, malaise, lethargy. No fever or chills. HEENT: Eyes: No visual changes. No eye pain. No eye discharge. ENT: No runny nose. No epistaxis. No sinus pain. No sore throat. No odynophagia. No congestion. RESPIRATORY: No cough, no congestion. No hemoptysis. Shortness of breath on exertion as usual. CARDIOVASCULAR: No angina symptoms. No CHF symptoms. No atypical chest pain for CAD. No palpitations. No orthopnea. GASTROINTESTINAL: No abdominal pain. No nausea or vomiting. No diarrhea or constipation. No hematemesis. No hematochezia. Appetite has improved. GENITOURINARY: No urgency. No frequency. No dysuria. No hematuria. No obstructive symptoms. No discharge. No pain. No significant abnormal bleeding. MUSCULOSKELETAL: No musculoskeletal pain; no joint swelling. He is able to walk a few more steps than before. NEUROLOGICAL: No headache. No neck pain. No syncope. No seizures. No dizziness. PSYCHIATRIC: Not anxious. No depression. No suicidal thoughts. No homicidal thoughts. SKIN: No rash. No lesions. No wounds. ENDOCRINE: No unexplained weight loss. No weight gain. HEMATOLOGIC/LYMPHATIC: No anemia. No purpura. No petechiae. No prolonged or excessive bleeding. No palpable lymph nodes. PHYSICAL EXAMINATION: GENERAL: The patient is oriented to time, place and person. HEENT: Head normocephalic, atraumatic. Eyes: Extraocular muscles are intact. Pupils are equal, round and reactive to light and accommodation. Ears: No lesions. Nose appeared normal. Throat: No exudate or erythema. NECK: Supple. No JVD, no carotid bruit. No lymphadenopathy or thyromegaly. LUNGS: Decreased breath sounds but clear to auscultation. Percussion note normal. Chest symmetrical. HEART: S1, S2, no S3. No murmurs. No cyanosis or clubbing. No ascites. Pulses: Dorsalis pedis and posterior tibial pulses +1 to +2 both sides. ABDOMEN: Soft. Nontender. Bowel sounds active. No CVA tenderness. No mass felt. EXTREMITIES: No edema. Full range of motion of all extremities, equal. NEUROLOGIC: No focal deficit. Cranial nerves II through XII are grossly intact. No headache, no double vision or headache. SKIN: Not dry. Intact. Turgor - normal. LYMPHATIC: No palpable lymph nodes/no lymphedema. MUSCULOSKELETAL: Normal joints with no swelling. Muscle tone is normal. LABS: Labs are all acceptable ASSESSMENT: 1. Acute bronchitis 2. Exacerbation of COPD seems to be resolved PLAN: 1. Pulmonary rehab strongly advised, PFT showed 24% of FEV1 to predicted normal , severe COPD 2. The patient will be discharged home on Keflex and steroids 3. Continue the rest of the NEBS, inhaler Symbicort and Proventil HFA 4. Advised to lose weight 5. Pulmonary rehab declined CONDITION: Stable. TIME SPENT: More than 30 minutes. Plan and coordination of the patient's care discussed in the presence of nurse. LUIZ
--- NOTE | 2018-05-13 13:36 | DS ---
DATE OF SERVICE: 05/12/18 FINAL DIAGNOSIS: 1. Acute exacerbation of COPD 2. Severe COPD 3. History of tobacco abuse with smoking 4. Hypertension 5. Dyslipidemia 6. Asthma 7. GERD 8. Chronic kidney disease 9. History of CVA 10.Anxiety 11.Depression 12.Osteoarthritis 13.Obesity 14.Benign Prostatic Hypertrophy DISCHARGE INSTRUCTIONS: Discharge the patient home. Continue home medications. The patient advised pulmonary rehab, declined. The patient is to be seen by me Sunday. The patient is to continue Symbicort, Proventil inhaler and antihypertensive medications. MEDICATIONS AT DISCHARGE: Symbicort Isosorbide Hydrocodone-Acetaminophen Combivent Proscar Klonopin Theophylline Vitamin D3 Daliresp Flonase Aspirin Prilosec Lopressor ProAir Albuterol Flomax NEW PRESCRIPTIONS: Keflex 500mg three times a day for 5 days Prednisone 10mg twice a day for 5 days. DIET INSTRUCTIONS: As tolerated ACTIVITY: As tolerated SMOKING: N/A DISEASE SPECIFIC EDUCATION: Followup New medications Use of antibiotics COPD HOSPITAL COURSE: Mr. Foley was hospitalized with acute exacerbation of COPD. The patient had never been seen by me. I was on hospitalist call so the patient was admitted under my service. He was treated with Rocephin, IV Solu-Cortef and NEBS treatment. The patient's condition improved. His cardiac rhythm was normal, in fact the patient had coronary angiogram done recently in March which was reported as normal and normal LV function. The patient has barrel shaped chest with severe COPD with history of smoking, has quit smoking 15 days ago. The patient declined any low dose CT scan every yearly to be done. Ultrasound of the aorta advised every yearly for aneurysm detection, which he declined. Pulmonary rehab, he declined. The patient is up and about. Steroid side effects including avascular necrosis of the femoral bone, osteoporosis, diabetes mellitus etc discussed with the patient. CONDITION: Stable. TIME SPENT: More than 60 minutes. MTDD
--- NOTE | 2018-05-13 13:40 | PN ---
05/08/18: Level 5 05/09/18: Intermediate 05/10/18: Intermediate 05/11/18: Intermediate 05/12/18: D as in discharge MTDD
== END 2018-05-12 09:21 | disposition home or self-care (01) | DRG 190 ==
LOC: ED 13:19 → MEDSURG B 16:41
PROVIDERS: ADMIT Internal Medicine; ATTEND Internal Medicine
DX: J44.1 Chronic obstructive pulmonary disease with (acute) exacerbation (principal); J96.00 Acute respiratory failure, unspecified whether with hypoxia or hypercapnia; J20.9 Acute bronchitis, unspecified; J45.909 Unspecified asthma, uncomplicated; I25.10 Atherosclerotic heart disease of native coronary artery without angina pectoris; I10 Essential (primary) hypertension; K21.9 Gastro-esophageal reflux disease without esophagitis; N18.9 Chronic kidney disease, unspecified; M19.90 Unspecified osteoarthritis, unspecified site; E66.9 Obesity, unspecified; F41.8 Other specified anxiety disorders; Z68.26 Body mass index [BMI] 26.0-26.9, adult; Z99.81 Dependence on supplemental oxygen
CPT/HCPCS: 36415; 80053; 80198; 82803; 84484; 85025; 87070; 87081; 87186; 93005; 93010; 94640; 99283

== ENCOUNTER 2018-05-15 10:10 | Emergency (ER) ==
[2018-05-15 10:15] VITALS: BP 105/68; TEMP 98.4; BMI 26.5
--- NOTE | 2018-05-15 11:40 | ED.PDOC ---
General ED Provider: Dr. ANTHONY FIELDS Chief Complaint: Extremity Swelling/Pain Stated Complaint: LOWER EXT PAIN/EDEMA BILATERAL Time Seen by Physician: 10:13 (SEEN WITH RN AT ALL TIMES ) Mode of Arrival: Walk-In Information Source: Patient, Family Exam Limitations: No limitations Primary Care Provider: KYLER ARCE Nursing and Triage Documentation Reviewed and Agree: Yes Does patient meet sepsis criteria?: Yes If yes, has appropriate treatment been initiated?: No System Inflammatory Response Syndrome: Not Applicable Sepsis Protocol: For patient's 13 years and over: Temp is 96.8 and below OR 101 and greater Pulse >90 BPM Resp >20/minute Acutely Altered Mental Status Are patient's symptoms suggestive of a new infection, such as: -Pneumonia -Skin, Soft Tissue -Endocarditis -UTI -Bone, Joint Infection -Implantable Device -Acute Abdominal Infection -Wound Infection -Meningitis -Blood Stream Catheter Infection -Unknown Musculoskeletal Complaint Exam - Lower Extremity Complaint/Exam Location of Pain: Reports: Right, Left, Leg Mechanism of Injury: Reports: No known trauma Onset/Duration: 1 WEK EDEMA PAIN NO RASH NO INJURY Symptoms Are: Still present Onset of Pain: Reports: Days Initial Severity: Moderate Current Severity: Moderate Location: Reports: Discrete Character: Reports: Aching Alleviating: Reports: Rest Aggravating: Reports: Movement Able to Bear Weight: Yes Associated Signs and Symptoms: Denies: Swelling, Redness, Bruising, Fever, Weakness, Numbness, Tingling DVT Risk Factors: Reports: None Septic Arthritis Risk Factors: Reports: None Related Surgical History: Reports: None Hector's Sign Present: No Differential Diagnoses: Arthritis, DVT Review of Systems - Review Of Systems Constitutional: Reports: No symptoms Eyes: Reports: No symptoms Ears, Nose, Mouth, Throat: Reports: No symptoms Respiratory: Reports: No symptoms Cardiac: Reports: No symptoms GI: Reports: No symptoms : Reports: No symptoms Musculoskeletal: Reports: Other (LEG PAIN EDEMA) Skin: Reports: No symptoms Neurological: Reports: No symptoms Endocrine: Reports: No symptoms Hematologic/Lymphatic: Reports: No symptoms All Other Systems: Reviewed and Negative Past Medical History - Past Medical History Previously Healthy: Yes Endocrine: Reports: Dyslipidemia Cardiovascular: Reports: CAD, MD Respiratory: Reports: COPD, Asthma Hematological: Reports: None Gastrointestinal: Reports: GERD, Liver, Other (Multple Colon polyps ) Genitourinary: Reports: CKD Neuro/Psych: Reports: CVA, Anxiety, Depression Musculoskeletal: Reports: Arthritis Cancer: Reports: None - Surgical History General Surgical History: Reports: Orthopedic (Rt Hip replaced), Hernia Repair ( Umbilical hernia repair), Other (colonoscopy ) - Family History Family History: Reports: Unknown - Social History Smoking Status: Former smoker Hx Substance Use: No Alcohol Screening: Occasionally - Immunizations Influenza Vaccine within 12 Months: No Pneumococcal Vaccine up to Date: No Physical Exam - Physical Exam Appearance: Well-appearing, No pain distress, Well-nourished Eyes: GREG, EOMI, Conjunctiva clear ENT: Ears normal, Nose normal, Oropharynx normal Respiratory: Airway patent, Breath sounds clear, Breath sounds equal, Respirations nonlabored Cardiovascular: RRR, Pulses normal, No rub, No murmur GI/: Soft, Nontender, No masses, Bowel sounds normal, No Organomegaly Musculoskeletal: Normal strength, ROM intact, No edema, No calf tenderness Skin: Warm, Dry, Normal color Neurological: Sensation intact, Motor intact, Reflexes intact, Cranial nerves intact, Alert, Oriented Psychiatric: Affect appropriate, Mood appropriate Critical Care Note - Critical Care Note Total Time (mins): 0 Course - Course Hematology/Chemistry: 05/15/18 10:40 05/15/18 10:40 Orders, Labs, Meds: Lab Review 05/15/18 05/15/18 10:40 10:40 WBC 11.28 H RBC 4.54 L Hgb 13.5 L Hct 40.6 L MCV 89.4 MCH 29.7 MCHC 33.3 RDW Coeff of Jimmie 13.9 Plt Count 350 Immature Gran % (Auto) 0.5 Neut % (Auto) 68.9 Lymph % (Auto) 23.2 [place] % (Auto) 5.9 Eos % (Auto) 1.4 Baso % (Auto) 0.1 Immature Gran # (Auto) 0.1 Neut # (Auto) 7.8 H Lymph # (Auto) 2.6 [place] # (Auto) 0.7 Eos # (Auto) 0.2 Baso # (Auto) 0.0 Sodium 142 Potassium 3.5 Chloride 105 Carbon Dioxide 32 H Anion Gap 8.5 BUN 8 Creatinine 0.73 Estimated GFR (MDRD) 108.00 BUN/Creatinine Ratio 10.95 Glucose 82 Calcium 8.6 Total Bilirubin 0.6 AST 12 L ALT 7 L Alkaline Phosphatase 66 Total Protein 5.4 L Albumin 3.0 L Globulin 2.4 Albumin/Globulin Ratio 1.25 Orders Category Date Time Status CBC W/ AUTO DIFF Stat LAB 05/15/18 10:40 Completed COMPREHENSIVE METABOLIC PANEL Stat LAB 05/15/18 10:40 Completed U/S VENOUS SCAN LANA LEGS Stat RADS 05/15/18 10:36 Ordered Vital Signs: Temp Pulse Resp BP Pulse Ox 05/15/18 10:10 98.4 F 83 20 105/68 94 L Departure - Departure Time of Disposition: 11:40 Disposition: HOME SELF-CARE Discharge Problem: Bilateral leg pain Instructions: Leg Pain (ED), Arthralgia (ED) Condition: Good Pt referred to PMD for follow-up: Yes IPMP verified?: No Additional Instructions: Please call your Family Physician as soon as possible to schedule a follow-up appointment. Allergies/Adverse Reactions: Allergies No Known Allergies Allergy (Verified 05/15/18 10:17) Home Medications: Ambulatory Orders Budesonide/Formoterol Fumarate [Symbicort 160-4.5 Mcg Inhaler] 2 puff IH BID Clonazepam [Klonopin] 0.5 mg PO BID PRN 01/16/14 Finasteride [Proscar] 5 mg PO DAILY 01/16/14 Hydrocodone/Acetaminophen [Hydrocodon-Acetaminophen 5-325] 2 each PO QID Ipratropium/Albuterol Sulfate [Combivent Respimat Inhal [place]] 2 puff IH QID Isosorbide Mononitrate [Isosorbide Mononitrate ER] 30 mg PO DAILY 01/16/14 Cholecalciferol (Vitamin D3) [Vitamin D3] 2,000 unit PO DAILY 08/24/14 Theophylline Anhydrous [Theophylline] 200 mg PO BID 08/24/14 Roflumilast [Daliresp] 500 mcg PO DAILY 12/10/14 Fluticasone Propionate [Flonase] 1 spray INH DAILY 04/10/15 Aspirin [Aspirin Chewable] 81 mg PO DAILYWM 10/05/15 Albuterol Sulfate 0.083% Neb [Albuterol 0.083% Neb] 1 vial NEB RTQ6H PRN Albuterol Sulfate [Proair Hfa] 2 puff IH Q4H 10/17/16 Metoprolol Tartrate [Lopressor] 12.5 mg PO BID 10/17/16 Omeprazole [Prilosec] 40 mg PO QDAC 10/17/16 Tamsulosin HCl [Flomax] 0.4 mg PO BID 05/08/18 Cephalexin [Keflex] 500 mg PO Q8HR #15 capsule 05/12/18 Prednisone 10 mg PO BIDWM #10 tablet 05/12/18
--- NOTE | 2018-05-15 12:01 | US ---
EXAM: Bilateral lower extremity venous doppler. HISTORY: Bilateral lower extremity pain and swelling. COMPARISON: None available. TECHNIQUE: A duplex Doppler study was performed consisting of integrated two dimensional (2D) real-t riley imaging color flow Doppler and Doppler spectral analysis utilizing linear array probes. FINDINGS: There is normal flow, venous waveforms, compressibility and augmentation of flow within th e right and left common femoral, greater saphenous, profunda, femoral, popliteal, posterior tibial, a nterior tibial and peroneal veins. Subcutaneous edema noted in the right calf. IMPRESSION: No evidence for right or left lower extremity deep vein thrombosis at the levels examined.
== END 2018-05-15 11:46 | disposition home or self-care (01) ==
LOC: ED 10:10
DX: M79.605 Pain in left leg (principal); M79.604 Pain in right leg; R60.0 Localized edema; Z79.899 Other long term (current) drug therapy
CPT/HCPCS: 36415; 80053; 85025; 99282

== ENCOUNTER 2018-06-03 08:54 | Day surgery (SDC) ==
[2018-06-03 11:03] VITALS: TEMP 97.2
[2018-06-03] MEDS: TETRACAINE 0.5% UNIT-DOSE OP PRN ×3 (11:04→12:47)
[2018-06-03] MEDS: KETOROLAC 0.5% OPTH SOL OP PRN ×3 (11:04→13:07)
[2018-06-03] MEDS: AK-DILATE 10% OPTH SOL OP PRN ×3 (11:05→11:15)
[2018-06-03] MEDS: CYCLOGYL 2% OPTH OP PRN ×3 (11:05→11:15)
[2018-06-03] MEDS ORDERED: DIAMOX PO STA ×2 (11:13→13:20)
[2018-06-03] MEDS ORDERED: VERSED ONE (12:50)
[2018-06-03] MEDS ORDERED: SUBLIMAZE ONE (12:50)
[2018-06-03] MEDS ORDERED: OCUFLOX 0.3% OPTH SOL OP PRN (13:07)
[2018-06-03] MEDS ORDERED: PRED FORTE 1% OPTH SOL OP PRN (13:07)
[2018-06-03] MEDS ORDERED: DIAMOX ONE (13:40)
--- NOTE | 2018-06-04 10:24 | OP ---
PREOPERATIVE DIAGNOSIS: SENILE CATARACT, RIGHT EYE. POSTOPERATIVE DIAGNOSIS: SAME. OPERATION PHACOEMULSIFICATION ASPIRATION OF CATARACT RIGHT EYE. PLACEMENT OF POSTERIOR CHAMBER LENS. PHACO TIME 25.0 SECONDS AT 11% POWER. LENS MODEL TECALEX [id number]. DIOPTER +23.0D. TECHNIQUE: CLEAR CORNEA. ANESTHESIA: TOPICAL ANESTHESIA W/ANESTHESIA MONITORING. OPERATIVE REPORT: Topical anesthesia consisting of Tetracaine was applied to the cornea and Xylocaine Methyl Paraben free of MFP was injected intracamerally into the anterior chamber. The patient was then brought into the operating room , prepped and draped in the usual ophthalmic manner. A lid speculum was placed and the operating microscope was used. A paracentesis was made at the 3 o' clock position. A clear corneal incision was made just out to the limbus. The anterior chamber was entered just inside the clear cornea. Viscoelastic was injected into the anterior chamber. A capsulotomy was performed with a bent # 27 gauge needle. Phacoemulsification was then performed in the posterior chamber. After completion of the phacoemulsification, residual cortical material was aspirated with the irrigation-aspiration system. The posterior capsule was polished. Viscoelastic was injected into the anterior and posterior chambers to inflate the capsular bag. Lens were placed via an Unfolder system and stabilized in the bag. Viscoelastic was removed from the anterior chamber. The wound was checked for any leakage. The four sponges were removed from the fornix. Topical antibiotic steroid and nonsteroidal drops were also applied to the cornea. A Orr shield was applied. The patient left the operating room in good condition without any complications. INTRAOPERATIVE MEDICATIONS: Xylocaine Methyl Paraben Free MPF MTDD
[2018-06-06 10:11] VITALS: BP 128/67
== END 2018-06-03 13:50 | disposition home or self-care (01) ==
LOC: SURG 08:54
PROVIDERS: ATTEND Ophthalmology
DX: H25.13 Age-related nuclear cataract, bilateral (principal)

== ENCOUNTER 2018-07-01 06:16 | Day surgery (SDC) ==
[2018-07-01] MEDS: TETRACAINE 0.5% UNIT-DOSE OP PRN ×2 (07:25→09:38)
[2018-07-01] MEDS: CYCLOGYL 2% OPTH OP PRN ×3 (07:26→07:36)
[2018-07-01] MEDS: AK-DILATE 10% OPTH SOL OP PRN ×3 (07:26→07:36)
[2018-07-01] MEDS ORDERED: LIDOCAINE 1% 20 ML MDV ID STA (07:34)
[2018-07-01] MEDS ORDERED: DIAMOX PO STA ×2 (07:34→07:37)
[2018-07-01] MEDS ORDERED: KETOROLAC 0.5% OPTH SOL OP PRN (07:37)
[2018-07-01] MEDS ORDERED: VERSED ONE (09:30)
[2018-07-01] MEDS ORDERED: SUBLIMAZE ONE (09:30)
[2018-07-01] MEDS ORDERED: LIDOCAINE HCL 1% SDV INJ PRN (09:39)
[2018-07-01] MEDS ORDERED: BSS WITH EPINEPHRINE OP ONE (09:39)
[2018-07-01 12:05] VITALS: TEMP 97.4
[2018-07-01 12:07] VITALS: BP 107/62
--- NOTE | 2018-07-02 11:17 | OP ---
PREOPERATIVE DIAGNOSIS: ADVANCED NUCLEAR SCLEROTIC/CORTICAL CATARACT LEFT EYE. POSTOPERATIVE DIAGNOSIS: SAME. OPERATION PHACOEMULSIFICATION ASPIRATION OF CATARACT LEFT EYE. PLACEMENT OF POSTERIOR CHAMBER LENS. PHACO TIME 45.9 SECONDS AT 5% POWER. LENS MODEL TECALEX [id number]. DIOPTER +29.0D. TECHNIQUE: CLEAR CORNEA. ANESTHESIA: TOPICAL ANESTHESIA W/ANESTHESIA MONITORING. OPERATIVE REPORT: Topical anesthesia consisting of Tetracaine was applied to the cornea and Xylocaine Methyl Paraben free of MFP was injected intracamerally into the anterior chamber. The patient was then brought into the operating room , prepped and draped in the usual ophthalmic manner. A lid speculum was placed and the operating microscope was used. A paracentesis was made at the 3 o' clock position. A clear corneal incision was made just out to the limbus. The anterior chamber was entered just inside the clear cornea. Viscoelastic was injected into the anterior chamber. A capsulotomy was performed with a bent # 27 gauge needle. Phacoemulsification was then performed in the posterior chamber. After completion of the phacoemulsification, residual cortical material was aspirated with the irrigation-aspiration system. The posterior capsule was polished. Viscoelastic was injected into the anterior and posterior chambers to inflate the capsular bag. Lens were placed via an Unfolder system and stabilized in the bag. Viscoelastic was removed from the anterior chamber. The wound was checked for any leakage. The four sponges were removed from the fornix. Topical antibiotic steroid and nonsteroidal drops were also applied to the cornea. A Orr shield was applied. The patient left the operating room in good condition without any complications. INTRAOPERATIVE MEDICATIONS: Xylocaine Methyl Paraben Free MPF MTDD
== END 2018-07-01 10:40 | disposition home or self-care (01) ==
LOC: SURG 06:16
PROVIDERS: ATTEND Ophthalmology
DX: Z96.1 Presence of intraocular lens (principal); H25.12 Age-related nuclear cataract, left eye

== ENCOUNTER 2018-12-08 14:01 | Emergency (ER) ==
[2018-12-08 14:08] VITALS: BP 130/86; TEMP 97.7; BMI 27.1
[2018-12-08] MEDS ORDERED: SOLU-MEDROL 125 MG IM STA (14:09)
[2018-12-08] MEDS ORDERED: DUONEB NEB STA (14:09)
--- NOTE | 2018-12-08 14:12 | ED.PDOC ---
General ED Provider: Dr. YASEMIN MIRELES Stated Complaint: Shortness of breath, cough and congestion. Onset X 2 weeks. [facility] Started Z pack, Steroids and given a flu shot Time Seen by Physician: 14:08 Mode of Arrival: Walk-In Information Source: Patient, Family Exam Limitations: No limitations Primary Care Provider: KYLER ARCE Nursing and Triage Documentation Reviewed and Agree: Yes Does patient meet sepsis criteria?: No System Inflammatory Response Syndrome: Not Applicable Sepsis Protocol: For patient's 13 years and over: Temp is 96.8 and below OR 101 and greater Pulse >90 BPM Resp >20/minute Acutely Altered Mental Status Are patient's symptoms suggestive of a new infection, such as: -Pneumonia -Skin, Soft Tissue -Endocarditis -UTI -Bone, Joint Infection -Implantable Device -Acute Abdominal Infection -Wound Infection -Meningitis -Blood Stream Catheter Infection -Unknown Respiratory Complaint Exam - Shortness of Air Complaint/Exam Symptoms Are: Still present, Worse Timing: Intermittent Initial Severity: Mild Current Severity: Moderate Character: Reports: Dyspnea at rest, Dyspnea on exertion Aggravating: Reports: Movement, Deep breaths, Recumbent position Alleviating: Reports: None, Oxygen, Upright position Associated Signs and Symptoms: Reports: Cough, Wheezing Related History: Reports: Similar episode Pulmonary Embolism Risk Factors: Reports: None Cardiac Risk Factors: Reports: None Pseudomonas Risk Factors: Reports: None Tuberculosis Risk Factors: Reports: None Home Oxygen Use: Yes Recent Stress Test: No Recent Echo/LV Function: No Stridor Present: No Tracheal Deviation: No Subcutaneous Emphysema: No Accessory Muscle Use: Yes Diminished Breath Sounds: Yes Prolonged Expiratory Phase: No Unable to Speak Full Sentences: No Fatigue: Yes Leg Swelling: No Hector's Sign Present: No Grunting Respirations: No Kussmaul Respirations: No Differential Diagnoses: COPD Exacerbation, Pneumonia, Bronchospasm (influenza) Review of Systems - Review Of Systems Constitutional: Reports: Chills, Weakness Eyes: Reports: No symptoms Ears, Nose, Mouth, Throat: Reports: No symptoms Respiratory: Reports: Cough, Orthopnea, Short of air Cardiac: Reports: No symptoms GI: Reports: No symptoms : Reports: No symptoms Musculoskeletal: Reports: No symptoms Skin: Reports: No symptoms Endocrine: Reports: No symptoms Hematologic/Lymphatic: Reports: No symptoms All Other Systems: Reviewed and Negative Past Medical History - Past Medical History Previously Healthy: Yes Endocrine: Reports: Dyslipidemia Cardiovascular: Reports: CAD, [place] Respiratory: Reports: COPD, Asthma Hematological: Reports: None Gastrointestinal: Reports: GERD, Liver, Other (Multple Colon polyps ) Genitourinary: Reports: CKD Neuro/Psych: Reports: CVA, Anxiety, Depression Musculoskeletal: Reports: Arthritis Cancer: Reports: None - Surgical History General Surgical History: Reports: Orthopedic (Rt Hip replaced), Hernia Repair ( Umbilical hernia repair), Other (colonoscopy ) - Family History Family History: Reports: Unknown - Social History Smoking Status: Former smoker Hx Substance Use: No Alcohol Screening: Occasionally - Immunizations Influenza Vaccine within 12 Months: No Pneumococcal Vaccine up to Date: No Physical Exam - Physical Exam Appearance: Ill-appearing, Obese Ill-appearing: Moderate Pain Distress: Moderate Eyes: GREG, EOMI, Conjunctiva clear ENT: Ears normal, Nose normal, Oropharynx normal Neck: Supple Respiratory: Airway patent Cardiovascular: RRR, Pulses normal, No rub, No murmur GI/: Soft, Nontender, No masses, Bowel sounds normal, No Organomegaly Musculoskeletal: Normal strength, ROM intact, No edema, No calf tenderness Skin: Warm, Dry, Normal color Neurological: Sensation intact, Motor intact, Reflexes intact, Cranial nerves intact, Alert, Oriented Interpretation - Radiology Interpretation Radiology Interpretation By: Radiologist (OPACITY NOTED LT MID LUNG/CORRELATD WITH CAVITARY LESION 2015) Exam Interpreted: CXR Critical Care Note - Critical Care Note Total Time (mins): 60 Course - Course Hematology/Chemistry: 12/08/18 14:20 12/08/18 14:20 Orders, Labs, Meds: Lab Review 12/08/18 12/08/18 12/08/18 14:15 14:15 14:20 WBC RBC Hgb Hct MCV MCH MCHC RDW Coeff of Jimmie Plt Count Immature Gran % (Auto) Neut % (Auto) Lymph % (Auto) [place] % (Auto) Eos % (Auto) Baso % (Auto) Immature Gran # (Auto) Neut # (Auto) Lymph # (Auto) [place] # (Auto) Eos # (Auto) Baso # (Auto) Puncture Site O2 Saturation ABG pH ABG pCO2 ABG pO2 ABG HCO3 ABG Total CO2 ABG Base Excess O2 Delivery Device Oxygen Liter Flow Sodium 138.1 Potassium 4.24 Chloride 94.2 L Carbon Dioxide 37.3 H Anion Gap 10.84 BUN 12.2 Creatinine 0.81 Estimated GFR (MDRD) 96.00 BUN/Creatinine Ratio 15.06 Glucose 93.0 Lactic Acid Calcium 8.81 Total Bilirubin 0.53 AST 12.4 L ALT 6.1 Alkaline Phosphatase 72.4 Total Creatine Kinase Troponin I Total Protein 6.66 Albumin 3.97 Globulin 2.69 Albumin/Globulin Ratio 1.47 Procalcitonin Influ A Molecular Assay Negative by naat Influ B Molecular Assay Negative by naat RSV Antigen Negative by naat 12/08/18 12/08/18 12/08/18 14:20 14:20 14:20 WBC 14.63 H RBC 4.66 L Hgb 13.5 L Hct 42.7 MCV 91.6 MCH 29.0 MCHC 31.6 L RDW Coeff of Jimmie 13.4 Plt Count 223 Immature Gran % (Auto) 0.3 Neut % (Auto) 83.6 Lymph % (Auto) 11.3 [place] % (Auto) 4.5 Eos % (Auto) 0.2 Baso % (Auto) 0.1 Immature Gran # (Auto) 0.1 Neut # (Auto) 12.2 H Lymph # (Auto) 1.7 [place] # (Auto) 0.7 Eos # (Auto) 0.0 Baso # (Auto) 0.0 Puncture Site O2 Saturation ABG pH ABG pCO2 ABG pO2 ABG HCO3 ABG Total CO2 ABG Base Excess O2 Delivery Device Oxygen Liter Flow Sodium Potassium Chloride Carbon Dioxide Anion Gap BUN Creatinine Estimated GFR (MDRD) BUN/Creatinine Ratio Glucose Lactic Acid 0.84 Calcium Total Bilirubin AST ALT Alkaline Phosphatase Total Creatine Kinase Troponin I Total Protein Albumin Globulin Albumin/Globulin Ratio Procalcitonin < 0.05 Influ A Molecular Assay Influ B Molecular Assay RSV Antigen 12/08/18 12/08/18 14:20 14:22 WBC RBC Hgb Hct MCV MCH MCHC RDW Coeff of Jimmie Plt Count Immature Gran % (Auto) Neut % (Auto) Lymph % (Auto) [place] % (Auto) Eos % (Auto) Baso % (Auto) Immature Gran # (Auto) Neut # (Auto) Lymph # (Auto) [place] # (Auto) Eos # (Auto) Baso # (Auto) Puncture Site Rbrach O2 Saturation 97.0 ABG pH 7.376 ABG pCO2 56.3 H ABG pO2 95.0 ABG HCO3 33.0 H ABG Total CO2 35 H ABG Base Excess 0 O2 Delivery Device Nc Oxygen Liter Flow 3.00 Sodium Potassium Chloride Carbon Dioxide Anion Gap BUN Creatinine Estimated GFR (MDRD) BUN/Creatinine Ratio Glucose Lactic Acid Calcium Total Bilirubin AST ALT Alkaline Phosphatase Total Creatine Kinase 41.0 L Troponin I < 0.012 Total Protein Albumin Globulin Albumin/Globulin Ratio Procalcitonin Influ A Molecular Assay Influ B Molecular Assay RSV Antigen Orders Category Date Time Status ABG DRAW REQUEST Stat CARDIO 12/08/18 14:22 Completed EKG-(ED ONLY) Stat CARDIO 12/08/18 14:04 Completed NEBULIZER TREATMENT Stat CARDIO 12/08/18 14:09 Completed IV [ED IV/MEDIPORT/POWERPORT] .ONCE EMERGENCY 12/08/18 14:04 Active ABG Stat LAB 12/08/18 14:22 Completed BLOOD CULTURE Stat LAB 12/08/18 14:38 Received CBC W/ AUTO DIFF DAILY@0600 LAB 12/09/18 06:00 Ordered CBC W/ AUTO DIFF DAILY@0600 LAB 12/10/18 06:00 Ordered CBC W/ AUTO DIFF Stat LAB 12/08/18 14:20 Completed CMP [COMPREHENSIVE METABOLIC PANEL] Stat LAB 12/08/18 14:20 Completed CPK [CREATINE KINASE] Stat LAB 12/08/18 14:20 Completed FLU A & B MOLECULAR [FLU A/B MOLECULAR] Stat LAB 12/08/18 14:15 Completed LACTIC ACID Stat LAB 12/08/18 14:20 Completed PROCALCITONIN Stat LAB 12/08/18 14:20 Completed RAPID STREP SCREEN [MOLECULAR GROUP A STREP] Stat LAB 12/08/18 14:15 Completed RSV Stat LAB 12/08/18 14:15 Completed SPUTUM CULTURE Stat LAB 12/08/18 14:50 Received TROPONIN I Stat LAB 12/08/18 14:20 Completed 0.9 % Sodium Chloride [Saline Flush] MEDS 12/08/18 14:04 Ordered 1 syr IVF PRN PRN Ipratropium/Albuterol Neb [Duoneb] MEDS 12/08/18 14:09 Discontinued 1 vial NEB ONCE STA Methylprednisolone Sod Succ/Pf [Solu-Medrol 125 mg] MEDS 12/08/18 14:09 Discontinued 125 mg IM ONCE STA CHEST, 1V AP ONLY Stat RADS 12/08/18 14:04 Completed Medications Generic Name Dose Route Start Last Admin Trade Name Freq PRN Reason Stop Dose Admin Sodium Chloride 1 syr 12/08/18 14:04 Saline Flush IVF PRN PRN To flush IV Discontinued Medications Generic Name Dose Route Start Last Admin Trade Name Isabel PRN Reason Stop Dose Admin Albuterol/Ipratropium 1 vial 12/08/18 14:09 12/08/18 14:19 Duoneb NEB 12/08/18 14:10 1 vial ONCE STA Administration Methylprednisolone Sodium Succinate 125 mg 12/08/18 14:09 12/08/18 14:17 Solu-Medrol 125 Mg IM 12/08/18 14:10 125 mg ONCE STA Administration Vital Signs: Temp Pulse Resp BP Pulse Ox 12/08/18 14:03 97.7 F 81 25 H 130/86 98 Departure - Departure Time of Disposition: 16:00 Disposition: PLACED OBSERVATION Discharge Problem: COPD exacerbation Instructions: COPD (Chronic Obstructive Pulmonary Disease) (ED) Condition: Fair Pt referred to PMD for follow-up: Yes (SEE PCP AND [employer] IN NEXT WEEK) IPMP verified?: No Additional Instructions: CONTINUE HOME NEBS ROUTING 4 TIMES DAILY TYLENOL NEEDED FOR PAIN OR TEMPERATURE ELEVATION TAKE MEDS DIRECTED (MINOCYCLINE AND PREDNISONE ([facility]EN [facility] FOR FO[facility] CHEST XRAY OR OTHER CHEST IMAGING SUCH CT SCAN(OPACITY NOTED LT MID LUNG/ CORRELATED WITH CAVITARY LESION 2015) PATIENT STATES [facility] AND WAS NEGATIVE Allergies/Adverse Reactions: Allergies No Known Allergies Allergy (Verified 07/01/18 07:35) Home Medications: Ambulatory Orders Clonazepam [Klonopin] 0.5 mg PO DAILY 01/16/14 Ipratropium/Albuterol Sulfate [Combivent Respimat Inhal [place]] 1 puff IH QID Isosorbide Mononitrate [Isosorbide Mononitrate ER] 30 mg PO DAILY 01/16/14 Roflumilast [Daliresp] 500 mcg PO DAILY 12/10/14 Aspirin [Aspirin Chewable] 81 mg PO DAILYWM 10/05/15 Albuterol Sulfate 0.083% Neb [Albuterol 0.083% Neb] 1 vial NEB RTQ6H PRN Metoprolol Tartrate [Lopressor] 12.5 mg PO BID 10/17/16 Tamsulosin HCl [Flomax] 0.4 mg PO BID 05/08/18 Bupropion HCl 100 mg PO BID 12/08/18 Cyanocobalamin (Vitamin B-12) [Vitamin B-12] 1,000 mcg PO DAILY 12/08/18 Finasteride 5 mg PO DAILY 12/08/18 Fluticasone/Umeclidin/Vilanter [Trelegy Ellipta 100-62.5-25] 1 puff IH DAILY Hydrocodone Bit/Acetaminophen [[place] 10-325] 1 tab PO Q6HR 12/08/18 Minocycline HCl 100 mg PO BID #20 capsule 12/08/18 Pravastatin Sodium [Pravachol] 40 mg PO DAILY 12/08/18 Prednisone 10 mg PO DAILY #30 tablet 12/08/18 Disposition Discussed With: Patient
--- NOTE | 2018-12-08 14:50 | DI ---
EXAM: Chest one view HISTORY: Dyspnea, cough COMPARISON: 05/08/2018 TECHNIQUE: Single view of the chest was performed FINDINGS: No airspace consolidation. Opacity left mid lung. Lungs are hyperinflated. There is no pleural effusion or pneumothorax. The heart is normal in size. The mediastinal contour is normal. There are no acute abnormalities of the bones. IMPRESSION: 1. No acute cardiopulmonary process. 2. Hyperinflated lungs may suggest chronic obstructive pulmonary disease. 3. Unexpected finding: Opacity in the left mid lung. This is seen in the region of a cavitary nodu le on prior CT chest 10/09/2016. Recommend correlation with CT chest with contrast. Report faxed
== END 2018-12-08 16:25 | disposition admitted as inpatient to this hospital (09) ==
LOC: ED 14:01
DX: R06.02 Shortness of breath (principal); R05 Cough; R06.00 Dyspnea, unspecified; R06.2 Wheezing; R53.1 Weakness; R06.01 Orthopnea; J44.1 Chronic obstructive pulmonary disease with (acute) exacerbation
CPT/HCPCS: 36415; 80053; 82550; 82803; 83605; 84145; 84484; 85025; 87040; 87070; 87077; 87186; 87502; 87651; 87801; 93005; 93010; 94640; 96374; 96375; 99283

== ENCOUNTER 2019-01-09 16:52 | Inpatient (IN) ==
[2019-01-09 16:58] VITALS: BMI 26.3
--- NOTE | 2019-01-09 17:48 | ED.PDOC ---
General Stated Complaint: several weeks of worsening shortnrss of breath in a smoking patyient with chronic copd and bronchitis Time Seen by Physician: 17:47 Mode of Arrival: Walk-In Information Source: Patient Exam Limitations: No limitations Nursing and Triage Documentation Reviewed and Agree: Yes Does patient meet sepsis criteria?: No System Inflammatory Response Syndrome: Not Applicable <GRISELDA BULL - Last Filed: 01/09/19 18:01> <KT RAY - Last Filed: 01/09/19 21:53> ED Provider: Dr. KT RAY Chief Complaint: Respiratory Complaint Primary Care Provider: KYLER ARCE Sepsis Protocol: For patient's 13 years and over: Temp is 96.8 and below OR 101 and greater Pulse >90 BPM Resp >20/minute Acutely Altered Mental Status Are patient's symptoms suggestive of a new infection, such as: -Pneumonia -Skin, Soft Tissue -Endocarditis -UTI -Bone, Joint Infection -Implantable Device -Acute Abdominal Infection -Wound Infection -Meningitis -Blood Stream Catheter Infection -Unknown Respiratory Complaint Exam - Respiratory Complaint/Exam Onset/Duration: several weeks Symptoms Are: Still present Timing: Constant Initial Severity: Moderate Current Severity: Moderate Location: Chest Character: Reports: Non-productive cough Aggravating: Reports: Exertion Alleviating: Reports: Upright position Associated Signs and Symptoms: Reports: Dyspnea, Wheezing, Dizziness History of Healthcare-Acquired Pneumonia: No Related Surgical History: Reports: None Pulmonary Embolism Risk Factors: Smoking Cardiac Risk Factors: Reports: Family History Pseudomonas Risk Factors: Reports: Bronchiectasis Tuberculosis Risk Factors: Reports: Smoking Home Oxygen Use: No Recent Stress Test: No Recent Echo/LV Function: No Current Antibiotic Use: No Current Asthma Medication Use: No Respiratory Distress: Moderate Inadequate Respiratory Effort: No Dysphagia Present: No Stridor Present: No JVD Present: No Accessory Muscle Use: No Retractions: Not Present Diminished Breath Sounds: Yes Sinus Tenderness: None Grunting Respirations: No Kussmaul Respirations: No Differential Diagnoses: Asthma, COPD Exacerbation, Bronchitis, Bronchospasm <GRISELDA BULL - Last Filed: 01/09/19 18:01> Review of Systems - Review Of Systems Constitutional: Reports: Weakness, Other Eyes: Reports: No symptoms Ears, Nose, Mouth, Throat: Reports: No symptoms Respiratory: Reports: Cough, Short of air, Wheezing Cardiac: Reports: No symptoms GI: Reports: No symptoms : Reports: No symptoms Musculoskeletal: Reports: No symptoms Skin: Reports: No symptoms Neurological: Reports: No symptoms Endocrine: Reports: No symptoms Hematologic/Lymphatic: Reports: No symptoms All Other Systems: Reviewed and Negative <GRISELDA BULL - Last Filed: 01/09/19 18:01> Past Medical History - Past Medical History Previously Healthy: Yes Endocrine: Reports: Dyslipidemia Cardiovascular: Reports: CAD, [place] Respiratory: Reports: COPD, Asthma Hematological: Reports: None Gastrointestinal: Reports: GERD, Liver, Other (Multple Colon polyps ) Genitourinary: Reports: CKD Neuro/Psych: Reports: CVA, Anxiety, Depression Musculoskeletal: Reports: Arthritis Cancer: Reports: None - Surgical History General Surgical History: Reports: Orthopedic (Rt Hip replaced), Hernia Repair ( Umbilical hernia repair), Other (colonoscopy ) - Family History Family History: Reports: Unknown - Social History Smoking Status: Current every day smoker Hx Substance Use: No Alcohol Screening: None - Immunizations Tetanus Shot up to Date: Yes Influenza Vaccine within 12 Months: No Pneumococcal Vaccine up to Date: No <GRISELDA BULL - Last Filed: 01/09/19 18:01> Physical Exam - Physical Exam Appearance: Ill-appearing, Thin Ill-appearing: Moderate Pain Distress: None Eyes: GREG ENT: Ears normal Neck: Supple Respiratory: Breath sounds diminished, Wheezes Cardiovascular: Tachycardia GI/: Tender Musculoskeletal: Normal strength Skin: Warm Neurological: Sensation intact <GRISELDA BULL - Last Filed: 01/09/19 18:01> Re-Evaluation - Re-Evaluation Time of Re-Evaluation: 21:51 Status: Improved (feels better ) Vital Signs Stable: Yes Pain Level: moderate on the back Lungs: Other (diminished) <KT RAY - Last Filed: 01/09/19 21:53> Physician Notification - Case Discussed Physician Notified: Dr Webb Time of Notification: 21:45 (Ok to admit ) <KT RAY Last Filed: 01/09/19 21:53> Critical Care Note - Critical Care Note Total Time (mins): 45 <KT RAY - Last Filed: 01/09/19 21:53> Course - Course Hematology/Chemistry: 01/09/19 18:06 01/09/19 18:06 <KT RAY - Last Filed: 01/09/19 21:53> - Course Orders, Labs, Meds: Lab Review 01/09/19 01/09/19 01/09/19 17:12 18:06 18:06 WBC 12.61 H RBC 4.46 L Hgb 13.0 L Hct 40.7 L MCV 91.3 MCH 29.1 MCHC 31.9 RDW Coeff of Jimmie 13.2 Plt Count 260 Immature Gran % (Auto) 0.4 Neut % (Auto) 74.7 Lymph % (Auto) 15.0 [place] % (Auto) 8.9 Eos % (Auto) 0.8 Baso % (Auto) 0.2 Immature Gran # (Auto) 0.1 Neut # (Auto) 9.4 H Lymph # (Auto) 1.9 [place] # (Auto) 1.1 Eos # (Auto) 0.1 Baso # (Auto) 0.0 Puncture Site R radial O2 Saturation 81.0 L ABG pH 7.385 ABG pCO2 51.8 H ABG pO2 47.0 L* ABG HCO3 31 H ABG Total CO2 33 H ABG Base Excess 6 H Davidson Test + FiO2 % 21.0 Sodium 136.5 Potassium 4.07 Chloride 97.2 L Carbon Dioxide 31.7 H Anion Gap 11.67 BUN 15.5 Creatinine 1.01 Estimated GFR (MDRD) 74.00 BUN/Creatinine Ratio 15.34 Glucose 90.5 Lactic Acid Calcium 8.92 Total Bilirubin 0.42 AST 11.8 L ALT 5.4 Alkaline Phosphatase 90.4 Total Protein 6.92 Albumin 3.88 Globulin 3.04 Albumin/Globulin Ratio 1.27 01/09/19 18:06 WBC RBC Hgb Hct MCV MCH MCHC RDW Coeff of Jimmie Plt Count Immature Gran % (Auto) Neut % (Auto) Lymph % (Auto) [place] % (Auto) Eos % (Auto) Baso % (Auto) Immature Gran # (Auto) Neut # (Auto) Lymph # (Auto) [place] # (Auto) Eos # (Auto) Baso # (Auto) Puncture Site O2 Saturation ABG pH ABG pCO2 ABG pO2 ABG HCO3 ABG Total CO2 ABG Base Excess Davidson Test FiO2 % Sodium Potassium Chloride Carbon Dioxide Anion Gap BUN Creatinine Estimated GFR (MDRD) BUN/Creatinine Ratio Glucose Lactic Acid 0.71 Calcium Total Bilirubin AST ALT Alkaline Phosphatase Total Protein Albumin Globulin Albumin/Globulin Ratio Orders Category Date Time Status ADMIT PATIENT INPATIENT .[facility] ADMISSION 01/09/19 21: 46 Active ABG DRAW REQUEST Stat CARDIO 01/09/19 17:12 Completed EKG-(ED ONLY) Stat CARDIO 01/09/19 19:46 Completed NEBULIZER TREATMENT Routine CARDIO 01/09/19 21:47 Ordered NEBULIZER TREATMENT Stat CARDIO 01/09/19 19:46 Completed OXYGEN Routine CARDIO 01/09/19 21:43 Ordered ACTIVITY .Early Mobilization for VTE Prevention CARE 01/09/19 21:43 Active INTAKE & OUTPUT Q8HR CARE 01/09/19 21:43 Active TELEMETRY MONITORING TELE CARE 01/09/19 21:46 Active VITAL SIGNS Q4HR CARE 01/09/19 21:43 Active REGULAR DIET DIETARY 01/09/19 Breakfast Ordered ABG Stat LAB 01/09/19 17:12 Completed BASIC METABOLIC PANEL DAILY@0600 LAB 01/10/19 06:00 Ordered BASIC METABOLIC PANEL DAILY@0600 LAB 01/11/19 06:00 Ordered BLOOD CULTURE (ED ONLY) Stat LAB 01/09/19 18:05 Received CBC W/ AUTO DIFF DAILY@0600 LAB 01/10/19 06:00 Ordered CBC W/ AUTO DIFF DAILY@0600 LAB 01/11/19 06:00 Ordered CBC W/ AUTO DIFF Stat LAB 01/09/19 18:06 Completed COMPREHENSIVE METABOLIC PANEL Stat LAB 01/09/19 18:06 Completed LACTIC ACID Stat LAB 01/09/19 18:06 Completed Ceftriaxone Sodium [Rocephin] MEDS 01/09/19 19:56 Discontinued 1 gm .ROUTE .STK-MED ONE Ceftriaxone Sodium [Rocephin] 1 gm MEDS 01/10/19 09:00 Ordered 0.9 % Sodium Chloride [Sodium Chloride] 50 ml IV DAILY Ceftriaxone Sodium [Rocephin] 1 gm MEDS 01/09/19 19:46 Discontinued 0.9 % Sodium Chloride [Sodium Chloride] 50 ml IV ONCE Doxycycline Hyclate MEDS 01/09/19 22:00 Ordered 100 mg PO Q12HR Enoxaparin Sodium [Lovenox] MEDS 01/10/19 09:00 Ordered 40 mg SUBCUT DAILY Ipratropium/Albuterol Neb [Duoneb] MEDS 01/09/19 19:45 Discontinued 1 vial NEB ONCE STA Ipratropium/Albuterol Neb [Duoneb] MEDS 01/09/19 21:43 Ordered 1 vial NEB RTQ2H PRN Ipratropium/Albuterol Neb [Duoneb] MEDS 01/10/19 06:00 Ordered 1 vial NEB RTQID Methylprednisolone Sod Succ/Pf [Solu-Medrol 125 mg] MEDS 01/09/19 19:45 Discontinued 125 mg IVP ONCE STA Methylprednisolone Sod Succ/Pf [Solu-Medrol 125 mg] MEDS 01/10/19 05:00 Ordered 125 mg IVP Q8HR Morphine Sulfate [Morphine 2 mg/ml Syringe] MEDS 01/09/19 21:49 Discontinued 2 mg IVP ONCE STA Morphine Sulfate [Morphine 2 mg/ml Syringe] MEDS 01/09/19 21:43 Ordered 2 mg IVP Q4H PRN Ondansetron HCl/Pf [Zofran 4 mg/2 ml] MEDS 01/09/19 21:43 Ordered 4 mg IVP Q6H PRN RESUSCITATION STATUS Routine OTHERS 01/09/19 21:[address] CHEST W/O CONTRAST Stat RADS 01/09/19 17:49 Completed Medications Generic Name Dose Route Start Last Admin Trade Name Freq PRN Reason Stop Dose Admin Albuterol/Ipratropium 1 vial 01/10/19 06:00 Duoneb NEB RTQID JAMSHID Albuterol/Ipratropium 1 vial 01/09/19 21:43 Duoneb NEB RTQ2H PRN Wheezing Doxycycline Hyclate 100 mg 01/09/19 22:00 Doxycycline Hyclate PO 01/12/19 21:59 Q12HR JAMSHID Enoxaparin Sodium 40 mg 01/10/19 09:00 Lovenox SUBCUT DAILY JAMSHID Ceftriaxone Sodium 1 gm/ 50 mls @ 75 mls/hr 01/10/19 09:00 Sodium Chloride IV 01/13/19 08:59 DAILY JAMSHID Methylprednisolone Sodium Succinate 125 mg 01/10/19 05:00 Solu-Medrol 125 Mg IVP Q8HR JAMSHID Morphine Sulfate 2 mg 01/09/19 21:43 Morphine 2 Mg/Ml Syringe IVP Q4H PRN Severe Pain Ondansetron HCl 4 mg 01/09/19 21:43 Zofran 4 Mg/2 Ml IVP Q6H PRN zofran Discontinued Medications Generic Name Dose Route Start Last Admin Trade Name Isabel PRN Reason Stop Dose Admin Albuterol/Ipratropium 1 vial 01/09/19 19:45 01/09/19 19:51 Duoneb NEB 01/09/19 19:46 1 vial ONCE STA Administration Ceftriaxone Sodium 1 gm/ 50 mls @ 75 mls/hr 01/09/19 19:46 01/09/19 20:00 Sodium Chloride IV 01/09/19 20:25 75 mls/hr ONCE STA Administration Methylprednisolone Sodium Succinate 125 mg 01/09/19 19:45 01/09/19 20:00 Solu-Medrol 125 Mg IVP 01/09/19 19:46 125 mg ONCE STA Administration Morphine Sulfate 2 mg 01/09/19 21:49 Morphine 2 Mg/Ml Syringe IVP 01/09/19 21:50 ONCE STA Vital Signs: Temp Pulse Resp BP Pulse Ox 01/09/19 16:52 97.9 F 101 H 20 103/79 86 L Departure <GRISELDA BULL - Last Filed: 01/09/19 18:01> - Departure Time of Disposition: 21:50 Pt referred to PMD for follow-up: Yes IPMP verified?: No <KT RAY - Last Filed: 01/09/19 21:53> - Departure Disposition: HOME SELF-CARE Discharge Problem: Acute and chronic respiratory failure with hypoxia, COPD exacerbation Hypercapnic respiratory failure Qualifiers: Chronicity: acute Qualified Code(s): J96.02 - Acute respiratory failure with hypercapnia Back pain Qualifiers: Back pain location: low back pain Chronicity: chronic Back pain laterality: midline Sciatica presence: without sciatica Qualified Code(s): M54.5 - Low back pain Condition: Fair Allergies/Adverse Reactions: Allergies No Known Allergies Allergy (Verified 01/09/19 17:02) Home Medications: Ambulatory Orders Clonazepam [Klonopin] 0.5 mg PO DAILY 01/16/14 Isosorbide Mononitrate [Isosorbide Mononitrate ER] 30 mg PO DAILY 01/16/14 Roflumilast [Daliresp] 500 mcg PO DAILY 12/10/14 Aspirin [Aspirin Chewable] 81 mg PO DAILYWM 12/15/15 Albuterol Sulfate 0.083% Neb [Albuterol 0.083% Neb] 1 vial NEB RTQ6H PRN Metoprolol Tartrate [Lopressor] 12.5 mg PO BID 10/17/16 Bupropion HCl 100 mg PO BID 12/08/18 Cyanocobalamin (Vitamin B-12) [Vitamin B-12] 1,000 mcg PO DAILY 12/08/18 Finasteride 5 mg PO DAILY 12/08/18 Fluticasone/Umeclidin/Vilanter [Trelegy Ellipta 100-62.5-25] 1 puff IH DAILY Minocycline HCl 100 mg PO BID #20 capsule 12/08/18 Pravastatin Sodium [Pravachol] 40 mg PO DAILY 12/08/18 Prednisone 10 mg PO DAILY #30 tablet 12/08/18
--- NOTE | 2019-01-09 19:21 | CT ---
EXAM: CT scan chest without contrast HISTORY: Shortness of breath COMPARISON: CT scan chest 10/19/2016 FINDINGS: It was axial image thorax without contrast utilize 5-mm collimation. Sagittal and coronal reconstruction were imaged and reviewed the thoracic inlet is unremarkable. There are subcentimeter pretracheal lymph nodes. The ascending aorta is ectatic measuring 3.3 cm. The heart is normal in s ize with minimal coronary artery calcification. There is changes. Nodule in the superior segment of the demonstrates minimal [place] opacity. There is a new nodular opacity within the left lower l obe measuring 1.2 x 1.1 centimeters which merits follow-up. Small probable cyst within the dome air. There is a gallstone within the gallbladder. No evidence of lytic or blastic lesions. IMPRESSION: ASVD without aneurysm. No evidence of infiltrate or effusion. Previously noted cavitary nodule within superior segment left lower lobe demonstrates minimal interst itial opacity. There is a new left lower pulmonary nodule which merits follow-up. Cholelithiasis
[2019-01-09] MEDS ORDERED: SOLU-MEDROL 125 MG IVP STA (19:45)
[2019-01-09] MEDS ORDERED: DUONEB NEB STA (19:45)
[2019-01-09] MEDS ORDERED: ROCEPHIN 1 GM in SODIUM CHLORIDE 50 ML IV STA (19:46)
[2019-01-09] MEDS ORDERED: ROCEPHIN ONE (19:56)
[2019-01-09] MEDS ORDERED: DUONEB NEB PRN (21:43)
[2019-01-09] MEDS ORDERED: ZOFRAN 4 MG/2 ML IVP PRN (21:43)
[2019-01-09] MEDS ORDERED: MORPHINE 2 MG/ML SYRINGE IVP STA (21:49)
[2019-01-09] MEDS ORDERED: ALBUTEROL 0.083% NEB NEB PRN (22:33)
--- NOTE | 2019-01-09 22:39 | PCM ---
- Chief Complaint Chief Complaint: Chronic COPD, Respiratory failure. - History of Present Illness History of Present Illness: 63 yr old CM presented to ER 17:47 and met initialy with DR. Velasco and ultimately with DR. Meng. He has had several weeks worsening SOA, chronic COPD, chronic tobacco use. I was called 21:[address] Meng and I personally discussed the patient. Prominent weakness/SOA, patient of the [place] with known lung cavitary mass, worsening SOA/wheezing over past 1-2 weeks. He arrived in ER with temp 97.9, pulse 101, RR 20, BP 103/79, PO2 86%. Normally on home o2, respiratory failure, difficulty maintaining saturations. Given neb upon arrival. WBC was 12.61, hgb 13.0, plt 260, mcv normocytic at 91.3. He has neutrophilia 9.4%. CMP showed normal sodium 136.5, K+ 4.07, creatinine 1.01 w/ GFR 74, glucose 90.5, AST 11.8 and low. ALT 5.4 and low. Alk phos normal 90.4. Albumin a little low at 3.88. Co2 high at 31.7 and cl low at 97.2. ABG showed primary respiratory acidosis with secondary metabolic alkalosis with pH 7.385, o2 saturation 81%, pc02 51.8, Po2 47 hc03 31 and fio2 21%. Lactic acid was negative. Blood cultures ordered, pending. No procalcitonin was ordered, I did order that. I reviewed the history further with Dr. Meng, CT w/o infiltrate, cavitary nodule LLL, new LL pulm nodule. Patient is followed by [place], recent PET scan. He presented with worsening weakness/SOA, Hypercapnic respiratory failure, no chest pain. EKG NSR, on tele. Patient was given option of returning to specialists at the [place], he did not want this and he requested to stay at [facility]. I was then called for admit. I reviewed ER notes, he did meet SIRS criteria. I reviewed med list and noted minocyclyine/zpak recently. He was seen in the ER 1 month ago with another COPD exacerbation by Dr. Ty. SOA/cough/congestion x 2 weeks , [facility], z jesus steroids and given a flu shot, which was odd due to steroid/flu shot combo. [facility] a W[facility] 14.63, lactic acid and procalc were negative, ABG 02 saturation 97, pH 7.376, pco2 56.3, p02 95, hcoe 33, 3 L Oxy. Temp was normal 97.7, pulse 81, rr 25, BP 130/86, pulse ox 98%. , troponin negative, Co2 on CMP was 37.3 and a little higher than today. Reviewed last ER document/home meds. D/C from hospital at that time (ER ).CXR 12/08/18 hyperinflamted lungs suggested COPD, opacity in mid lung left. Cavitary nodule on prior CT 10/09/[address] chest with contrast recommended. Within the last month he has been on zpak/steroids/minocycline. I will start him on ceftriaxone/Doxycycline. No report/history of aspiration. No ventilator. Continue Lovenox. Chronic history of dyslipidemia, CAD, NH, COPD/Asthma, GERD, liver disease, multiple colon polyps, CKD, CVA, ANxiety, Depression, arthritis. Surgeries include right hip replacement, umbilical hernia repair. Current every day smoker. Several weeks of respiratory distress/worsening, moderate symptms, currently the same, improved with nebs. Non productive cough worsening, NOLAND worse, Wheezing/Dizziness and weakness worse. Moderate respiratory distress + SIRS criteria based on HR but so far no e/o Sepsis as CT shows no infiltrate, he has been on steroids according to home meds with demargination and neutrophilia likely. blood cultures were collected. Ddx COPD exacerbation, Asthma, bronchitis. He requests DNR. I have updated code status with nurses. [employer], [place] , agent orange exposure likely. [facility]. SOA, NOLAND, worsening cough, cannot lay flat, has had to use 3 pillows. Prominent poor foot health, prominent barrel chest. Talks in disjointed sentences. I saw him room 119-1 at 22:30-23:45 not including documentation. he does not know if his sister or someone else is POA, he will check in am. We reviewed meds together. S/P stroke 2009, left facial droop, grew out hair to hid the facial droop. +Night sweats, Decreased weight, increased work of breathing and failing O2 despite home O2. He cannot breath and presented tonight in hypercapnic respiratory failure. Chronic back pain, 5/ 10 aching/burning, thoracic and lumbar. Worse with motion and prolonged sitting /resting. Chronic knee pain. - Review of Systems Constitutional: chills, weakness, sweats, fatigue, loss of appetite. No: fever Eyes: No: blurred vision, double-vision, discharge, itching, pain, redness, photophobia Ears: No: pain, bleeding, drainage, ringing, hearing loss Nose: congestion. No: bleeding, discharge Throat: No: pain, swelling, voice change Mouth: No: bleeding, pain, swelling Respiratory: cough, shortness of air, wheeze, pain with breathing. No: hemoptysis Cardiovascular: diaphoresis, PND, orthopnea. No: chest pain, left arm pain, edema, palpitations, syncope Gastrointestinal: nausea. No: abdominal pain, vomiting, diarrhea, melena, hematemesis, hematochezia, dysphagia, constipation Genitourinary: frequency. No: dysuria, hematuria, incontinence, flank pain, penile discharge, testicular pain, testicular swelling Neurological: headache, dizziness, numbness (feet), weakness, speech difficulty , problems with walking, other (s/p stroke). No: seizure, tremor, fainting Musculoskeletal: pain. No: swelling in joints Skin: rash (bilateral bottom feet). No: pruritus, lacerations, wounds, bruising Immunology: No: hives, itching, frequent infections, difficulty healing Hematology: No: easy bruising, easy bleeding, swollen glands Endocrine: weight changes. No: cold intolerance, heat intolerance, excessive thirst, excessive hunger, polyuria Psychiatric: depression, anxiety. No: sleeplessness, hopelessness, suicidal, hallucinations Habits: tobacco use. No: substance use, alcohol use - Past Medical History Past Medical History: COPD/Asthma, neuropathy, claw toes, onychomycosis, stroke 2010, weight loss/barrel chest, Chronic tobacco use. Hyperlipidemia, HTN. - Past Surgical History Past Surgical History: Cataract, appendectomy, right hip surgery. - Allergies Allergies/Adverse Reactions: Allergies Allergy/AdvReac Type Severity Reaction Status Date / Time No Known Allergies Allergy Verified 01/09/19 17:02 - Medications Medications: Medications Generic Name Dose Route Start Last Admin Trade Name Freq PRN Reason Stop Dose Admin Albuterol Sulfate 1 vial 01/09/19 22:33 Albuterol 0.083% Neb NEB RTQ4H PRN Wheezing Albuterol/Ipratropium 1 vial 01/10/19 06:00 Duoneb NEB RTQID JAMSHID Clonazepam 0.5 mg 01/10/19 09:00 Klonopin PO DAILY [facility] Doxycycline Hyclate 100 mg 01/09/19 22:00 Doxycycline Hyclate PO 01/12/19 21:59 Q12HR [facility] Enoxaparin Sodium 40 mg 01/10/19 09:00 Lovenox SUBCUT DAILY [facility] Ceftriaxone Sodium 1 gm/ 50 mls @ 75 mls/hr 01/10/19 09:00 Sodium Chloride IV 01/13/19 08:59 DAILY [facility] Isosorbide Mononitrate 30 mg 01/10/19 09:00 Imdur PO DAILY [facility] Methylprednisolone Sodium Succinate 125 mg 01/10/19 05:00 Solu-Medrol 125 Mg IVP Q8HR [facility] Metoprolol Tartrate 12.5 mg 01/10/19 09:00 Lopressor PO BID [facility] Morphine Sulfate 2 mg 01/09/19 21:43 Morphine 2 Mg/Ml Syringe IVP Q4H PRN Severe Pain Ondansetron HCl 4 mg 01/09/19 21:43 Zofran 4 Mg/2 Ml IVP Q6H PRN zofran Pravastatin Sodium 40 mg 01/10/19 09:00 Pravachol PO DAILY [facility] Roflumilast 500 mcg 01/10/19 09:00 Daliresp PO DAILY [facility] - Family History Past Family History: Mother lung cancer, father lung cancer, sister brain cancer. Son lives in [facility] seen patient in last 2 years. - Social History Past Social History: Lives alone, chronic tobacco use 1/2 ppd for past 1 year, quit 1 month ago, praise given. NO drugs, no ETOH. - Body Composition Height: 6 ft 2 in Weight: 205 lb Body Mass Index (BMI): 26.3 - Physical Examination HEENT: Vital Signs - 24 hr 01/09/19 16:52 Temperature 97.9 F Pulse Rate 101 H Respiratory 20 Rate Blood Pressure 103/79 O2 Sat by Pulse 86 L Oximetry Constitutional: Appearance-Accessory muscle use, respiratory distress moderateConsistent with stated age. Orientation- Oriented x 3, alert Build and Nutrition-[BMI 26, thin appearing prominent barrel chest] General- Patient is pleasant and cooperative with the interview and exam talks in choppy sentences, partial fragmented sentences 5-7 words. Integumentary: General-No rashes, ulcers Prominent SK apex of scalp. Palpation- Normal skin moisture/turgor. Skin is warm to touch, appropriate. Capillary refill is normal bilateral Upper and lower extremity. Diaphoretic, no reported chest pain, but breathing hard working hard to breath and afraid. He notes he is always like this and this is no different. Head/Neck: Head- normocephalic and atraumatic. Neck- without visible/palpable lumps or pulsations. Palpation- No bony tenderness about head/neck along frontal, occipital, temporal, parietal, mastoid, jawline, zygoma, orbit or any other location. NO temporal artery tenderness. No TMJ tenderness. Neck Supple. Thyroid-No thyromegaly, no nodules. Left sided facial droop noted. no tenderness about the head/neck. Eye: Bilaterally PERRLA, EOMI. No discharge. Upper and lower eyelids are normal. Sclera/conjunctiva normal without discharge. Cornea is normal and clear. Lens is normal. Eyeball appears normal. No ciliary flushing, no conjunctival injection. ENMT: Pinna- normal without tenderness or erythema. External auditory canal Left- normal without erythema or discharge, no excessive cerumen. External auditory canal Right-normal without erythema or discharge, no excessive cerumen. TM left- Stewart/pearly, normal light reflex and anatomy TM Right- Stewart/ pearly, normal light reflex and anatomy Hearing Assessment-normal to conversational speech. Nose and sinus- No sinus tenderness along frontal/ maxillary region. External appearance normal and midline. Nares- bilateral quiet airflow, no discharge. Nasal mucosa- No bleeding noted and no ulcerations observed. Erythematous, boggy Turbinates. Lips- normal color, moist without cracks/lesions Oral Cavity/Palate- hard/soft palate intact without lesions, oral mucosa pink and moist. Oropharynx- no pharyngeal erythema, Uvula midline. No post nasal drip. No exudate. Salivary glands- Non tender to palpation CHEST/LUNG: Inspection- Increased effort, moderate distress, accessory muscles, abdominal breathing, I had them increase O2 to 3.5L as he was at 90% on 2 L and goal 92-98%. Normally on 2 L at home. Palpation- nontender sternum, ribline. No abnormal pulsations. Prominent barrel chest. Auscultation- Breath sounds diminished throughout all lung rossi. INteresting I was able to hear prominent wheezing bilaterally along costal margin only and remainder was markedly diminished/distant. tracheal sounds, bronchial sounds overlying sternum, Bronchovessicular sounds between scapulae posteriorly, vessicular breath sounds heard throughout periphery coarse and hard to hear. Adventitious sounds- Prominent wheezes distally, costal margin. Cracklling bilateral bases. rhonchi mostly in bases. Upper lobes/apex coarse/distant. CARDIOVASCULAR: Carotid artery- normal, no bruits or abnormal pulsations. Palpation/Percussion- Displaced PMI inferior and to left chest. Unable to auscultate sounds in typical locus. I was able to hear normal sounds just inferior to xyphoid process. no palpable thrill Auscultation- Regular rate and rhythm. No obvious murmur. No murmur radiation into axilla or carotid. Extremities- digital clubbing, NO cyanosis, No edema, NO increased warmth. ABDOMEN: Inspection- normal and no visible pulsations. Normal contour. Auscultation- Bowel sounds normal, no abdominal bruits. Palpation/Percussion- soft, non-tender, no rebound tenderness, no rigidity (guarding), no jar tenderness, no masses. Liver-no hepatomegaly, Spleen no splenomegaly, Hernias - none. Rectal not examined. Peripheral Vascular: Upper extremity Left- Normal temperature with pink nailbeds and no ulcerations. Upper extremity Right- Normal temperature with pink nailbeds and no ulcerations. Lower extremity- DP 1+. Callus prominently bilateral feet arch left>right loss of arch. Claw toes, onychomycosis, erythema bilateral base of feet. Poor foot health. Musculoskeletal: Generalized-No generalized swelling or edema of extremities, no digital clubbing or cyanosis, neurovascularly intact all four extremities. Upper extremity- Symmetrical posture. No visible deformity. Normal sensation along medial and lateral upper extremity proximally and distally. NO tenderness overlying shoulder, lateral/medial epicondyle. 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 Elbow palpated, no tenderness overlying olecranon. Normal supination, pronation to active/passive ROM and to resisted rotation. Bicep insertion/tricep insertion appear normal without obvious pathology. Rotator cuff evaluated and intact. Normal wrist ROM bilaterally. Normal hand movement, intrinsic muscles of hands normal. No tenderness to palpation of hands/wrists/ elbows. Lower extremity- Hip: Not tender to palpation, no pain, no swelling, edema or erythema of surrounding tissue, normal strength and tone. Normal appearing hip ROM bilaterally without pain. Knee: Knee ROM normal. No tenderness overlying trochanters, no tenderness about patella, quad tendon, patellar tendon. No tenderness at tibial tuberosity. Spine/Ribs- No deformities, masses. Paraspinal tenderness bilateral Thoracic and lumbar. Normal hallux strength, dorsiflexion 5/5 bilaterally. no known fractures, normal strength, Neurological: General- Moves all 4 extremities symmetrically. Right hand dominant but predominately using left arm, interestingly. Left facial droop stroke historically 2009. Reflexes normal. Asymmetrical face and normal body posture. Cranial nerves- individually evaluated II-XII PERRLA, Normal EOMI, visual/special senses appear intact, Face is asymmetrical with left sided chronic facial droop, not new. normal sensation/movement, normal tongue movement, normal strength/posture of neck musculature. Reflexes- intact with DTR 2+ patellar, Achilles, bicep, brachial, tricep. Ankle clonus normal with 2 beats. Strength- 5/5 bilateral UE and LE. Soft touch- intact bilateral UE and LE. Temperature sensation- intact bilateral UE and LE. Neuropsych: Oriented- Person, place, time. (AAOx3), Mood/affect- normal and congruent. Able to articulate well. Speech-Normal speech, normal rate, normal tone, normal use of language, volume and coherence. Thought content- normal with ability to perform basic computations and apply abstract thought/reason. Associations- intact, no SI/HI, no hallucinations, delusions, obsessions. Judgment/insight- Appropriate. Memory-Recall intact, remote and recent memory intact. Knowledge- Age appropriate fund of knowledge, concentration and attention span normal. Lymphatic: Head/Neck- normal size and non tender to palpation. Axillary- normal size and non tender to palpation. Femoral and Inguinal- normal size and non tender to palpation. - Lab/Tests/Diagnostic Imaging Lab/Tests/Diagnostic Imaging: Laboratory Last Values WBC 12.61 K/ul (4.2-10.2) H 01/09/19 18:06 RBC 4.46 10^6/ul (4.70-6.10) L 01/09/19 18:06 Hgb 13.0 g/dl (14.0-18.0) L 01/09/19 18:06 Hct 40.7 % (42.0-52.0) L 01/09/19 18:06 MCV 91.3 fl (80.0-94.0) 01/09/19 18:06 MCH 29.1 pg (27.0-31.0) 01/09/19 18:06 MCHC 31.9 (31.8-35.4) 01/09/19 18:06 RDW Coeff of Jimmie 13.2 % (11.6-14.8) 01/09/19 18:06 Plt Count 260 10^3/uL (140-440) 01/09/19 18:06 Immature Gran % (Auto) 0.4 % (0.0-5.0) 01/09/19 18:06 Neut % (Auto) 74.7 01/09/19 18:06 Lymph % (Auto) 15.0 (10.0-50.0) 01/09/19 18:06 [place] % (Auto) 8.9 (0-10) 01/09/19 18:06 Eos % (Auto) 0.8 % (0.0-7.0) 01/09/19 18:06 Baso % (Auto) 0.2 % (0.0-3.0) 01/09/19 18:06 Immature Gran # (Auto) 0.1 (0.0-1.0) 01/09/19 18:06 Neut # (Auto) 9.4 K/ul (2.0-6.9) H 01/09/19 18:06 Lymph # (Auto) 1.9 K/uL (0.60-3.4) 01/09/19 18:06 [place] # (Auto) 1.1 K/uL (0.4-2.0) 01/09/19 18:06 Eos # (Auto) 0.1 K/ul (0.0-0.7) 01/09/19 18:06 Baso # (Auto) 0.0 K/uL (0-0.2) 01/09/19 18:06 Puncture Site R radial 01/09/19 17:12 O2 Saturation 81.0 % (95-100) L 01/09/19 17:12 ABG pH 7.385 (7.35-7.45) 01/09/19 17:12 ABG pCO2 51.8 mmHg (35-45) H 01/09/19 17:12 ABG pO2 47.0 mmHg (85-100) L* 01/09/19 17:12 ABG HCO3 31 (22.0-26.0) H 01/09/19 17:12 ABG Total CO2 33 (22.0-28.0) H 01/09/19 17:12 ABG Base Excess 6 (-2.0-2.0) H 01/09/19 17:12 Davidson Test + 01/09/19 17:12 FiO2 % 21.0 % 01/09/19 17:12 Sodium 136.5 mmol/L (134.5-145) 01/09/19 18:06 Potassium 4.07 mmol/L (3.5-5.1) 01/09/19 18:06 Chloride 97.2 mmol/L (98-107) L 01/09/19 18:06 Carbon Dioxide 31.7 mmol/L (22-30.0) H 01/09/19 18:06 Anion Gap 11.67 01/09/19 18:06 BUN 15.5 mg/dL (9-20) 01/09/19 18:06 Creatinine 1.01 mg/dL (0.60-1.10) 01/09/19 18:06 Estimated GFR (MDRD) 74.00 mL/min 01/09/19 18:06 BUN/Creatinine Ratio 15.34 01/09/19 18:06 Glucose 90.5 mg/dL (74-106) 01/09/19 18:06 Lactic Acid 0.71 mmol/L (0.7-2.1) 01/09/19 18:06 Calcium 8.92 mg/dL (8.4-10.2) 01/09/19 18:06 Total Bilirubin 0.42 mg/dL (0.2-1.3) 01/09/19 18:06 AST 11.8 U/L (17-59) L 01/09/19 18:06 ALT 5.4 U/L (0-50) 01/09/19 18:06 Alkaline Phosphatase 90.4 U/L (56-119) 01/09/19 18:06 Total Protein 6.92 g/dL (6.3-8.2) 01/09/19 18:06 Albumin 3.88 g/dL (3.5-5.0) 01/09/19 18:06 Globulin 3.04 01/09/19 18:06 Albumin/Globulin Ratio 1.27 01/09/19 18:06 ABG: Personal interpretation: primary respiratory acidosis chronic with secondary metabolic alkalosis. CT Chest: Reported: ASVD without aneurysm, no e/o infiltrate or effusion, previously noted cavitary nodule within superior segment left lower lobe demonstrates minimal interstitial opacity, there is new left lower pulmonary nodule which merits f/u, cholelithiasis. - Assessment (1) Hypercapnic respiratory failure Status: Acute Code(s): J96.92 - RESPIRATORY FAILURE, UNSPECIFIED WITH HYPERCAPNIA SNOMED Code(s): 332302300 (2) Chronic obstructive pulmonary disease (COPD) Status: Chronic Code(s): J44.9 - CHRONIC OBSTRUCTIVE PULMONARY DISEASE, UNSPECIFIED SNOMED Code(s): 08514239 (3) Former smoker Status: Chronic Code(s): Z87.891 - PERSONAL HISTORY OF NICOTINE DEPENDENCE SNOMED Code(s): 7565975 (4) Hyperlipidemia Status: Chronic Code(s): E78.5 - HYPERLIPIDEMIA, UNSPECIFIED SNOMED Code(s) : 32793212 (5) Back pain Status: Chronic Code(s): M54.9 - DORSALGIA, UNSPECIFIED SNOMED Code(s): 703819066 Qualifiers: Back pain location: low back pain Chronicity: chronic Back pain laterality: midline Sciatica presence: without sciatica Qualified Code(s): M54.5 - Low back pain; G89.29 - Other chronic pain (6) History of stroke Status: Chronic Code(s): Z86.73 - PRSNL HX OF TIA (TIA), AND CEREB INFRC W/O RESID DEFICITS SNOMED Code(s): 988573514 (7) Depression with anxiety Status: Chronic Code(s): F41.8 - OTHER SPECIFIED ANXIETY DISORDERS SNOMED Code(s): 25828305, 290331856 (8) SIRS (systemic inflammatory response syndrome) Status: Acute Code(s): R65.10 - SIRS OF NON-INFECTIOUS ORIGIN W/O ACUTE ORGAN DYSFUNCTION SNOMED Code(s): 400583280 (9) Cavitary lesion of lung Status: Acute Code(s): J98.4 - OTHER DISORDERS OF LUNG SNOMED Code(s): 545623766 - Plan Plan: Acute and chronic respiratory failure with hypoxia (Acute)/Chronic obstructive pulmonary disease (COPD) (Acute)/SIRS:Suspect acute COPD exacerbation by history and exam. We reviewed smoking history. Former smoker. Continued tobacco avoidance highly encouraged today (both active and passive). We reviewed GOLD criteria. Gold defines exacerbation of COPD as acute event leading to worsening of respiratory symptoms with 3 cardinal features: increased cough freq/severity, sputum production volume/quality, worsened Dyspnea. He has met 2/3 without sputum production. Risk factors for exacerbations include advancing age, duration of COPD, history of abx use, prev hospitalization within past 12 months, mucus production, comorbidities to include heart disease, CHF, DM, and exposures. He has been on abx last month, ER evaluation last month. Already on daliresp. Following with pulm, ?Cavitary lesion of unknown significance. Respiratory infections are the most likely trigger in up to 70% of cases to include viral processes such as Rhino (warmer months), millan, adeno, parainfluenza (cooler months), allergic process, viral/ bacterial pneumonia. Studies have shown benefit to bronchodilators (grade 1B) and show reduced time to resolution of cough. Anticholinergic agents are often used in combination as studies show enhanced bronchodilation beyond that seen by either agent alone. I will add duoneb QID, albuterol q 4 hours, continue solumedrol. Caution advised as he mentioned BPH, we will monitor symptoms. Systemic glucocorticoids have been shown to have beneficial effect. Inhaled GC are of minimal benefit in acute exacerbation, but should not be stopped. We discussed that studies suggest use of abx is controversial. These are recommended to be avoided for simple bronchitis. WIth his history I will use ceftriaxone 1G daily and doxycycline 100 PO BID x 5 days. The patient voiced understanding. REviewed with him that common abx include doxycycline, FQ, 3rd gen Cephalosporin with or without macrolide. Discussed pros and cons of steroid use both injectible and oral forms. Decadron, dexamethasone, methylprednisolone -Pt notified of potential pros/risks of steroid treatment including rapid improvement of condition; allergic reaction, psychologic reaction (depression, anxiety, insomnia), skin change at injection site (color, dimpling), muscle weakness. Pt is aware they may refuse treatment. - Admit inpatient status - Solumedrol 125mg q 8 hours - Duoneb QID - ALbuterol q 4 hours pRN - Telemetry - I+O q shift - Vitals q shift. - Incentive spirometry - RT to follow. - O2 titrate to 92-98% (Up to 3.5L during admit). - Reviewed LAMA, LABA, GC, KEN agents w/ patient Cavitary lung lesion (CHRONIC): [facility], [facility]. Unknown status. He thinks that he has seen pulmonology. Discussed need to f/u with them as outpatient. Consider hospice. He would like to consider hospice. Back pain (Chronic): Unchanged. Will use morphine 2mg q 4 hours. Former smoker (Acute): 1 month tobacco free. Declined nicotine Hyperlipidemia (Chronic): Continue statin. NO SE. F/U w/ PCP as outpatient. DVT Prophy: Lovenox 40mg subcut - Lovenox 40mg subcut Diet: Regular Activity: Up with assist Code Status: DNR Disposition: Expected length of stay 2-3 days. Patient will check with sister in am to see if she is his POA. At this time he does not know. We talked about his service in [place], thanked him. WE talked about HOSPICE and he thinks that he would be interested in this idea. We discussed end stage COPD, discussed his cavitary lesion and that Hospice would not look for a cure to this process. He wants to think about this. We talk about this more tomorrow. Discussed with him to check with sister about POA tomorrow. He does want DNR status. >70 minutes spent on admission tonight to inpatient status. Solumedrol , lovenox, nebs q 4 hours, QID duoneb. See again am 01/10/19.
[2019-01-09] MEDS: DOXYCYCLINE HYCLATE PO SCH (23:11)
[2019-01-10] MEDS: SOLU-MEDROL 125 MG IVP SCH ×3 (04:53→20:44)
[2019-01-10] MEDS: DUONEB NEB SCH ×4 (05:05→20:17)
--- NOTE | 2019-01-10 07:10 | PCM.PROG ---
Subjective: 63 yo WM HD #2 presented in hypercapnic respiratory failure w/ chronic COPD #2 Cavitary lung lesions of unknown cause, [facility] within past week. CT showed same cavitary lesions, no infiltrate, Procalc and lactate negative. This am his CMP showed mild hyperglycemia likely steroidal effect with glucose 142.6, sodium 136.9, K+ 4.63, BUN 12.8 and cr 0.77 w/ GFR 102.6. Patient CBC looked better than admit with WBC 10.12, Hgb 14.1 (up from 13) and plt 293. BP overnight 103/79, 122/83, 118/75. Pulse 82-105 (82 this am ), temp afebrile 97.9/98.6. Tele overnight SR. I looked at multiple strips personally. Some movement artifact and some e/o tachy but I did not appreciate any concerning rhythms/afib/Vtach/etc. Urine output 0.8ml/kg/hr over the last 4 hours, which is reasonable. The patient was asleep on entry, feeling somewhat better. On 3 L oxygen with goal 92-98%. Talked with overnight/am nurse personally. Discussed case w/ patient personally at 6:55 this am, reviewed the above with him and talked again about hospice. He has his next appt with specialist on sunday. It would be reasonable to talk with hospice, learn what they have to offer and decide for himself. At least 2 exacerbations in last 2 months. He is on daliresp, he has specialists, this likely is end stage COPD. He is already on oxygen, cavitary lesions w/o exposure to TB. [facility]. These look cancerous, cancer w/u is currently undergoing and thus he was not placed onto isolation. NO hemoptysis. REVIEW OF SYMPTOMS: (Positives bolded) General: weight loss, fever, chills, night sweats, fatigue, appetite loss HEENT: blurry vision, eye pain, eye discharge, dry eyes, decreased vision, sore throat, tinnitus, bloody nose, hearing loss, sinus pain/pressure, ear pain/ pressure. Respiratory: shortness of breath, cough, hemoptysis, wheezing, pleurisy, Cardiovascular: chest pain, PND, palpitation, edema, orthopnea, syncope, swelling of extremities Gastro: Nausea, vomiting, diarrhea, hematemesis, abdominal pain, constipation Genito: hematuria, dysuria, glycosuria, hesitancy, frequency, incontinence Musckelo: Arthralgia, myalgia, muscle weakness, joint swelling, NSAID use Skin: rash, pruritis, sores, nail changes, skin thickening, change in wart/mole , itching, rash, new lesions, pruritus, nail changes Neuro: Migraine, numbness, ataxia, tremor, vertigo, weakness (generalized), memory loss, Irritability, dizziness Endocrine: excessive thirst, polyuria, cold intolerance, heat intolerance, goiter Psychiatric: depression, anxiety, anti-depressants, alcohol abuse, drug abuse, insomnia, change in sleep pattern and mood changes Heme/lymph: easy bruising, bleeding gums, blood clots, swollen glands, lymphedema, Allergic/immune: allergic rhinitis, hay fever, asthma, hives Objective: Vital Signs - 24 hr 01/09/19 01/09/19 01/09/19 16:52 22:27 23:34 Temperature 97.9 F 98.6 F Pulse Rate 101 H 105 H Respiratory 20 24 Rate Blood Pressure 103/79 O2 Sat by Pulse 86 L 90 L 96 Oximetry 01/10/19 01/10/19 01:47 05:31 Temperature 98.4 F 98.2 F Pulse Rate 96 H 82 Respiratory 24 25 H Rate Blood Pressure 122/83 118/75 O2 Sat by Pulse 91 L 98 Oximetry Constitutional: Appearance-Accessory muscle use, not currently in respiratory distress, RR was 25 at one point this am but now he was at 20 during rounds 0700. Consistent with stated age. Orientation- Oriented x 3, alert Build and Nutrition-[BMI 26, thin appearing but prominent barrel chest] General- Patient is pleasant and cooperative with the interview and exam talks in choppy sentences, partial fragmented sentences 10 words. Nearly full sentences this am. Integumentary: General-No rashes, ulcers Prominent SK apex of scalp. Much less Diaphoretic, Head/Neck: Left sided facial droop noted. Chronic, unchanged. no tenderness about the head/neck. Eye: Unchanged, no conjunctival injection PERRLA and EOMI ENMT: Nose and sinus- No sinus tenderness along frontal/maxillary region. External appearance normal and midline. Nares- bilateral quiet airflow, no discharge. Nasal mucosa- No bleeding noted and no ulcerations observed. Erythematous, boggy Turbinates. Lips- normal color, moist without cracks/ lesions Oral Cavity/Palate- hard/soft palate intact without lesions, oral mucosa pink and moist. Oropharynx- no pharyngeal erythema, Uvula midline. No post nasal drip. No exudate. Salivary glands- Non tender to palpation CHEST/LUNG: Inspection- Chronically Increased effort, no distress on rounds this am. Not using accessory muscles, still perhaps mildly using abdominal muscles but it is hard to tell due to the barrel chest. O2 92-98 as recommended. Auscultation- Breath sounds diminished throughout all lung rossi. wheezing increased throughout. tracheal sounds, bronchial sounds overlying sternum, Bronchovessicular sounds between scapulae posteriorly, vessicular breath sounds heard throughout periphery coarse and remain hard to hear but more Adventitious sounds today. Prominent wheezes distally, costal margin. Cracklling bilateral bases. rhonchi mostly in bases. Upper lobes/apex coarse/ distant. CARDIOVASCULAR: Carotid artery- normal, no bruits or abnormal pulsations. Palpation/Percussion- Displaced PMI inferior and to left chest. Unable to auscultate sounds in typical locus. I was again able to hear normal sounds just inferior to xyphoid process. no palpable thrill , no murmur. Auscultation- Regular rate and rhythm. No obvious murmur. No murmur radiation into axilla or carotid. Extremities- digital clubbing, NO cyanosis, No edema, NO increased warmth. ABDOMEN: Inspection- normal and no visible pulsations. Normal contour. Auscultation- Bowel sounds normal, no abdominal bruits. Palpation/Percussion- soft, non-tender, no rebound tenderness, no rigidity (guarding), no jar tenderness, no masses. Liver-no hepatomegaly, Spleen no splenomegaly, Hernias - none. Rectal not examined. Peripheral Vascular: Upper extremity Left- Normal temperature with pink nailbeds and no ulcerations. Upper extremity Right- Normal temperature with pink nailbeds and no ulcerations. Lower extremity- DP 1+. Callus prominently bilateral feet arch left>right loss of arch. Claw toes, onychomycosis, erythema bilateral base of feet. Poor foot health. Musculoskeletal: Generalized-No generalized swelling or edema of extremities, no digital clubbing or cyanosis, neurovascularly intact all four extremities. Neurological: General- Moves all 4 extremities symmetrically. Right hand dominant but predominately using left arm, interestingly. Left facial droop stroke historically 2010. Reflexes normal. Asymmetrical face and normal body posture. Cranial nerves- individually evaluated II-XII PERRLA, Normal EOMI, visual/special senses appear intact, Face is asymmetrical with left sided chronic facial droop, not new. normal sensation/movement, normal tongue movement, normal strength/posture of neck musculature. As above unchanged from 01/09/19. Neuro exam same. Neuropsych: Oriented- Person, place, time. (AAOx3), Mood/affect- normal and congruent. Able to articulate well. Speech-Normal speech, normal rate, normal tone, normal use of language, volume and coherence. Thought content- normal with ability to perform basic computations and apply abstract thought/reason. Associations- intact, no SI/HI, no hallucinations, delusions, obsessions. Judgment/insight- Appropriate. Memory-Recall intact, remote and recent memory intact. Knowledge- Age appropriate fund of knowledge, concentration and attention span normal. Lymphatic: Head/Neck- normal size and non tender to palpation. Laboratory Last Values WBC 10.12 K/ul (4.2-10.2) 01/10/19 05:01 RBC 4.89 10^6/ul (4.70-6.10) 01/10/19 05:01 Hgb 14.1 g/dl (14.0-18.0) 01/10/19 05:01 Hct 44.3 % (42.0-52.0) 01/10/19 05:01 MCV 90.6 fl (80.0-94.0) 01/10/19 05:01 MCH 28.8 pg (27.0-31.0) 01/10/19 05:01 MCHC 31.8 (31.8-35.4) 01/10/19 05:01 RDW Coeff of Jimmie 13.0 % (11.6-14.8) 01/10/19 05:01 Plt Count 293 10^3/uL (140-440) 01/10/19 05:01 Immature Gran % (Auto) 0.3 % (0.0-5.0) 01/10/19 05:01 Neut % (Auto) 88.4 01/10/19 05:01 Lymph % (Auto) 10.6 (10.0-50.0) 01/10/19 05:01 [place] % (Auto) 0.6 (0-10) 01/10/19 05:01 Eos % (Auto) 0.0 % (0.0-7.0) 01/10/19 05:01 Baso % (Auto) 0.1 % (0.0-3.0) 01/10/19 05:01 Immature Gran # (Auto) 0.0 (0.0-1.0) 01/10/19 05:01 Neut # (Auto) 9.0 K/ul (2.0-6.9) H 01/10/19 05:01 Lymph # (Auto) 1.1 K/uL (0.60-3.4) 01/10/19 05:01 [place] # (Auto) 0.1 K/uL (0.4-2.0) L 01/10/19 05:01 Eos # (Auto) 0.0 K/ul (0.0-0.7) 01/10/19 05:01 Baso # (Auto) 0.0 K/uL (0-0.2) 01/10/19 05:01 Puncture Site R radial 01/09/19 17:12 O2 Saturation 81.0 % (95-100) L 01/09/19 17:12 ABG pH 7.385 (7.35-7.45) 01/09/19 17:12 ABG pCO2 51.8 mmHg (35-45) H 01/09/19 17:12 ABG pO2 47.0 mmHg (85-100) L* 01/09/19 17:12 ABG HCO3 31 (22.0-26.0) H 01/09/19 17:12 ABG Total CO2 33 (22.0-28.0) H 01/09/19 17:12 ABG Base Excess 6 (-2.0-2.0) H 01/09/19 17:12 Davidson Test + 01/09/19 17:12 FiO2 % 21.0 % 01/09/19 17:12 Sodium 136.9 mmol/L (134.5-145) 01/10/19 05:01 Potassium 4.63 mmol/L (3.5-5.1) 01/10/19 05:01 Chloride 98.5 mmol/L (98-107) 01/10/19 05:01 Carbon Dioxide 31.6 mmol/L (22-30.0) H 01/10/19 05:01 Anion Gap 11.43 01/10/19 05:01 BUN 12.8 mg/dL (9-20) 01/10/19 05:01 Creatinine 0.77 mg/dL (0.60-1.10) 01/10/19 05:01 Estimated GFR (MDRD) 102.00 mL/min 01/10/19 05:01 BUN/Creatinine Ratio 16.62 01/10/19 05:01 Glucose 142.6 mg/dL (74-106) H D 01/10/19 05:01 Lactic Acid 0.71 mmol/L (0.7-2.1) 01/09/19 18:06 Calcium 8.71 mg/dL (8.4-10.2) 01/10/19 05:01 Total Bilirubin 0.42 mg/dL (0.2-1.3) 01/09/19 18:06 AST 11.8 U/L (17-59) L 01/09/19 18:06 ALT 5.4 U/L (0-50) 01/09/19 18:06 Alkaline Phosphatase 90.4 U/L (56-119) 01/09/19 18:06 Total Protein 6.92 g/dL (6.3-8.2) 01/09/19 18:06 Albumin 3.88 g/dL (3.5-5.0) 01/09/19 18:06 Globulin 3.04 01/09/19 18:06 Albumin/Globulin Ratio 1.27 01/09/19 18:06 Procalcitonin 0.06 ng/mL (<0.05) 01/09/19 18:00 (1) Hypercapnic respiratory failure Status: Acute Code(s): J96.92 - RESPIRATORY FAILURE, UNSPECIFIED WITH HYPERCAPNIA SNOMED Code(s): 244419608 (2) Chronic obstructive pulmonary disease (COPD) Status: Chronic Code(s): J44.9 - CHRONIC OBSTRUCTIVE PULMONARY DISEASE, UNSPECIFIED SNOMED Code(s): 35674217 (3) Former smoker Status: Chronic Code(s): Z87.891 - PERSONAL HISTORY OF NICOTINE DEPENDENCE SNOMED Code(s): 1432798 (4) Hyperlipidemia Status: Chronic Code(s): E78.5 - HYPERLIPIDEMIA, UNSPECIFIED SNOMED Code(s) : 49981253 (5) Back pain Status: Chronic Code(s): M54.9 - DORSALGIA, UNSPECIFIED SNOMED Code(s): 360904245 (6) History of stroke Status: Chronic Code(s): Z86.73 - PRSNL HX OF TIA (TIA), AND CEREB INFRC W/O RESID DEFICITS SNOMED Code(s): 301012177 (7) Depression with anxiety Status: Chronic Code(s): F41.8 - OTHER SPECIFIED ANXIETY DISORDERS SNOMED Code(s): 97910712 (8) SIRS (systemic inflammatory response syndrome) Status: Acute Code(s): R65.10 - SIRS OF NON-INFECTIOUS ORIGIN W/O ACUTE ORGAN DYSFUNCTION SNOMED Code(s): 448444598 (9) Cavitary lesion of lung Status: Acute Code(s): J98.4 - OTHER DISORDERS OF LUNG SNOMED Code(s): 317205470 Plan: Acute and chronic respiratory failure with hypoxia (Acute)/Chronic obstructive pulmonary disease (COPD) (Acute)/SIRS: SIRS has resolved. He is breathing more comfortably, doing well with IV solumedrol, IV rocephin 1 gram daily, PO doxycycline. CBC normalized, CMP normal. He no longer meets SIRS criteria. I have talked with him again at length today about his lung, cavitary lesion. We will reach out to [facility] to see what has been done. Hospice to see him today, referral placed. Continue inpatient admission status. Continue solumedrol IV, Rocephin IV, doxycycline PO. Afebrile, WBC normalized. He is breathing better. Continue duoneb QID, albuterol Q 4 hours PRN. I am worried about him being in end stage COPD, 2 Er visits with abx, 1 with admit, 2 ABG showing chronic hypercapnia, on daliresp already, following with Pulm and lung nodules concerning for malignancy. We talked about pro/con of hospice and I feel it would help him. - HD #2 Continue Admit inpatient status - Solumedrol 125mg q 8 hours - Duoneb QID - ALbuterol q 4 hours pRN - Telemetry - I+O q shift - Vitals q shift. - Incentive spirometry - RT to follow. - O2 titrate to 92-98% Cavitary lung lesion (CHRONIC): [facility], [facility]. Unknown status. He thinks that he has seen pulmonology. Discussed need to f/u with them as outpatient. Consider hospice. He would like to consider hospice. - Get records from [facility] - Get [facility] about [facility] so far, see if any w/u for TB. Back pain (Chronic): Unchanged. Will use morphine 2mg q 4 hours. Former smoker (Acute): 1 month tobacco free. Declined nicotine replacement. Hyperlipidemia (Chronic): Continue statin. NO SE. F/U w/ PCP as outpatient. DVT Prophy: Lovenox 40mg subcut - Lovenox 40mg subcut Diet: Regular Activity: Up with assist Code Status: DNR Disposition: Expected length of stay 1-2 more days, with total length ~3 days. Patient will check with sister this am to see if she is his POA. At this time he still does not know. WE again discussed HOSPICE and he thinks that he would be interested in this idea. We discussed end stage COPD, discussed his cavitary lesions and that Hospice would not look for a cure to this process. He wants to think about this and would like this meeting. He has f/u with pulm on sunday. He will be d/c by then with instruction to f/u with pulm sunday. He does want DNR status. Code in computer still says full. Called nurses 8:22 am and discussed this with them. They will change it. >35 minutes spent on rounding today.
[2019-01-10] MEDS: PROSCAR PO SCH (08:13)
[2019-01-10] MEDS: ROCEPHIN 1 GM in SODIUM CHLORIDE 50 ML IV SCH (08:13)
[2019-01-10] MEDS: DOXYCYCLINE HYCLATE PO SCH ×2 (08:13→20:42)
[2019-01-10] MEDS: KLONOPIN PO SCH (08:13)
[2019-01-10] MEDS: IMDUR PO SCH (08:13)
[2019-01-10] MEDS: LOPRESSOR PO SCH ×2 (08:14→20:42)
[2019-01-10] MEDS: ASPIRIN CHEWABLE PO SCH (08:14)
[2019-01-10] MEDS: DALIRESP PO SCH (08:14)
[2019-01-10] MEDS: PRAVACHOL PO SCH (08:14)
[2019-01-10] MEDS: NON-FORMULARY MEDICATION (Cyanocobalamin (Vitamin B-12) [Vitamin B-12] 1,000 MCG) PO SCH (08:18)
[2019-01-10] MEDS: NON-FORMULARY MEDICATION (Fluticasone/Umeclidin/Vilanter [Trelegy Ellipta 100-62.5-25] 1 P IH SCH ×2 (08:18→12:34)
[2019-01-10] MEDS: LOVENOX SUBCUT SCH (08:25)
[2019-01-10] MEDS: WELLBUTRIN PO SCH ×2 (08:59→21:13)
[2019-01-10] MEDS ORDERED: BUPROPION HCL 100 MG PO SCH (09:00)
[2019-01-10] MEDS: MORPHINE 2 MG/ML SYRINGE IVP PRN ×2 (13:35→20:47)
[2019-01-10 21:40] VITALS: TEMP 97.9
[2019-01-11] MEDS: DUONEB NEB SCH ×2 (04:55→09:46)
[2019-01-11 05:08] VITALS: BP 129/84
[2019-01-11] MEDS: SOLU-MEDROL 125 MG IVP SCH (05:16)
[2019-01-11] MEDS: PROSCAR PO SCH (08:19)
[2019-01-11] MEDS: DOXYCYCLINE HYCLATE PO SCH (08:19)
[2019-01-11] MEDS: ASPIRIN CHEWABLE PO SCH (08:20)
[2019-01-11] MEDS: KLONOPIN PO SCH (08:20)
[2019-01-11] MEDS: DALIRESP PO SCH (08:20)
[2019-01-11] MEDS: WELLBUTRIN PO SCH (08:20)
[2019-01-11] MEDS: IMDUR PO SCH (08:21)
[2019-01-11] MEDS: LOPRESSOR PO SCH (08:21)
[2019-01-11] MEDS: PRAVACHOL PO SCH (08:21)
[2019-01-11] MEDS: ROCEPHIN 1 GM in SODIUM CHLORIDE 50 ML IV SCH (08:22)
[2019-01-11] MEDS: LOVENOX SUBCUT SCH (08:25)
[2019-01-11] MEDS: NON-FORMULARY MEDICATION (Cyanocobalamin (Vitamin B-12) [Vitamin B-12] 1,000 MCG) PO SCH (08:34)
--- NOTE | 2019-01-11 10:25 | PCM.DC ---
Final Diagnosis: Hypercapnic Respiratory failure: (Acute on Chronic): Improved throughout hospital stay SIRS (Resolved): Cavitary Lung nodule LLL: PET scan showed 1 lesion, CT scan [facility] showed 2 lesions. Back pain (Chronic): Unchanged. Chronic obstructive pulmonary disease (COPD) (Chronic): Duoneb QID, albuterol in between. Depression with anxiety (Chronic): HOme meds continued, stable. Former smoker (Chronic): 1 month History of stroke (Chronic): Left sided facial droop Hyperlipidemia (Chronic): Overweight BMI 26: Leukocytosis: Suspected Demargination Hyperglycemia: GC effect likely Admitted 01/09/19: Dr. Webb-Hospitalist Discharged 01/11/19: Dr. Webb-Hospitalist Antibiotics: Ceftriaxone 1gram daily x 3 days, Doxycycline 100mg PO BID x 48 hours (5 doses) Steroids: solumedrol 125mg q 8 hours Oxygen: 2-4L keeping saturation 92-98%. (1) Hypercapnic respiratory failure Status: Chronic Code(s): J96.92 - RESPIRATORY FAILURE, UNSPECIFIED WITH HYPERCAPNIA SNOMED Code(s): 412881564 (2) Chronic obstructive pulmonary disease (COPD) Status: Chronic Code(s): J44.9 - CHRONIC OBSTRUCTIVE PULMONARY DISEASE, UNSPECIFIED SNOMED Code(s): 30646454 (3) Former smoker Status: Chronic Code(s): Z87.891 - PERSONAL HISTORY OF NICOTINE DEPENDENCE SNOMED Code(s): 2153199 (4) Hyperlipidemia Status: Chronic Code(s): E78.5 - HYPERLIPIDEMIA, UNSPECIFIED SNOMED Code(s) : 78434277 (5) Back pain Status: Chronic Code(s): M54.9 - DORSALGIA, UNSPECIFIED SNOMED Code(s): 461277490 Qualifiers: Back pain location: low back pain Chronicity: chronic Back pain laterality: midline Sciatica presence: without sciatica Qualified Code(s): M54.5 - Low back pain; G89.29 - Other chronic pain (6) History of stroke Status: Chronic Code(s): Z86.73 - PRSNL HX OF TIA (TIA), AND CEREB INFRC W/O RESID DEFICITS SNOMED Code(s): 121397638 (7) Depression with anxiety Status: Chronic Code(s): F41.8 - OTHER SPECIFIED ANXIETY DISORDERS SNOMED Code(s): 03852013, 637786609 (8) SIRS (systemic inflammatory response syndrome) Status: Inactive Code(s): R65.10 - SIRS OF NON-INFECTIOUS ORIGIN W/O ACUTE ORGAN DYSFUNCTION SNOMED Code(s): 787168039 (9) Cavitary lesion of lung Status: Chronic Code(s): J98.4 - OTHER DISORDERS OF LUNG SNOMED Code(s): 415337247 Reason for Hospitalization: Hypercapnic Respiratory Failure, chronic COPD, SIRS, cavitary lung lesion on CT w/o contrast Prognosis at Discharge: Stable/improved. Breathing more comfortably. On Home O2. O2 saturation maintained, breathing more calmly, talked in complete sentences, felt to be back to baseline. Cavitary lung nodule present, known. Recent PET scan obtained from [facility] supports malignancy. Talked with patient about upcoming appt with pulmonology 01/13/19. Also discussed questions to ask, discussed to consider hospice for Grade 4D COPD. D/C on 5 more days of abx to complete 7 as he had been on abx within last 1 month and still worsened. D/C on home O2 back at 3L. Condition at Discharge: Stable to improved. Patient felt back at baseline. WBC was elevated at d/c suspected demargination from steroids. Otherwise patient felt markedly better. Medications at Discharge: Ambulatory Orders Medication Instructions Recorded Clonazepam [Klonopin] 0.5 mg PO DAILY 01/16/14 Isosorbide Mononitrate [Isosorbide 30 mg PO DAILY 01/16/14 Mononitrate ER] Roflumilast [Daliresp] 500 mcg PO DAILY 12/10/14 Aspirin [Aspirin Chewable] 81 mg PO DAILYWM 10/05/15 Albuterol Sulfate 0.083% Neb 1 vial NEB RTQ6H PRN 10/17/16 [Albuterol 0.083% Neb] Metoprolol Tartrate [Lopressor] 12.5 mg PO BID 10/17/16 Bupropion HCl 100 mg PO BID 12/08/18 Cyanocobalamin (Vitamin B-12) 1,000 mcg PO DAILY 12/08/18 [Vitamin B-12] Finasteride 5 mg PO DAILY 12/08/18 Fluticasone/Umeclidin/Vilanter 1 puff IH DAILY 12/08/18 [Trelegy Ellipta 100-62.5-25] Pravastatin Sodium [Pravachol] 40 mg PO DAILY 12/08/18 Albuterol Sulfate [Ventolin Hfa] 2 - 4 puff IH Q4H PRN 30 Days #1 01/11/19 [email or web address] Cefdinir 300 mg PO BID 5 Days #10 capsule 01/11/19 Doxycycline Hyclate 100 mg PO Q12HR 5 Days #10 capsule 01/11/19 Prednisone 40 mg PO DAILYWM 5 Days #10 tablet 01/11/19 Lab/Diagnostics: Laboratory Last Values WBC 17.24 K/ul (4.2-10.2) H D 01/11/19 04:20 RBC 4.46 10^6/ul (4.70-6.10) L 01/11/19 04:20 Hgb 12.9 g/dl (14.0-18.0) L 01/11/19 04:20 Hct 39.8 % (42.0-52.0) L 01/11/19 04:20 MCV 89.2 fl (80.0-94.0) 01/11/19 04:20 MCH 28.9 pg (27.0-31.0) 01/11/19 04:20 MCHC 32.4 (31.8-35.4) 01/11/19 04:20 RDW Coeff of Jimmie 12.9 % (11.6-14.8) 01/11/19 04:20 Plt Count 342 10^3/uL (140-440) 01/11/19 04:20 Immature Gran % (Auto) 0.5 % (0.0-5.0) 01/11/19 04:20 Neut % (Auto) 91.0 01/11/19 04:20 Lymph % (Auto) 6.7 (10.0-50.0) L 01/11/19 04:20 [place] % (Auto) 1.7 (0-10) 01/11/19 04:20 Eos % (Auto) 0.0 % (0.0-7.0) 01/11/19 04:20 Baso % (Auto) 0.1 % (0.0-3.0) 01/11/19 04:20 Immature Gran # (Auto) 0.1 (0.0-1.0) 01/11/19 04:20 Neut # (Auto) 15.7 K/ul (2.0-6.9) H 01/11/19 04:20 Lymph # (Auto) 1.2 K/uL (0.60-3.4) 01/11/19 04:20 [place] # (Auto) 0.3 K/uL (0.4-2.0) L 01/11/19 04:20 Eos # (Auto) 0.0 K/ul (0.0-0.7) 01/11/19 04:20 Baso # (Auto) 0.0 K/uL (0-0.2) 01/11/19 04:20 Puncture Site R radial 01/09/19 17:12 O2 Saturation 81.0 % (95-100) L 01/09/19 17:12 ABG pH 7.385 (7.35-7.45) 01/09/19 17:12 ABG pCO2 51.8 mmHg (35-45) H 01/09/19 17:12 ABG pO2 47.0 mmHg (85-100) L* 01/09/19 17:12 ABG HCO3 31 (22.0-26.0) H 01/09/19 17:12 ABG Total CO2 33 (22.0-28.0) H 01/09/19 17:12 ABG Base Excess 6 (-2.0-2.0) H 01/09/19 17:12 Davidson Test + 01/09/19 17:12 FiO2 % 21.0 % 01/09/19 17:12 Sodium 135.8 mmol/L (134.5-145) 01/11/19 04:20 Potassium 4.63 mmol/L (3.5-5.1) 01/11/19 04:20 Chloride 98.6 mmol/L (98-107) 01/11/19 04:20 Carbon Dioxide 31.4 mmol/L (22-30.0) H 01/11/19 04:20 Anion Gap 10.43 01/11/19 04:20 BUN 19.9 mg/dL (9-20) 01/11/19 04:20 Creatinine 0.89 mg/dL (0.60-1.10) 01/11/19 04:20 Estimated GFR (MDRD) 86.00 mL/min 01/11/19 04:20 BUN/Creatinine Ratio 22.35 01/11/19 04:20 Glucose 132.5 mg/dL (74-106) H 01/11/19 04:20 Lactic Acid 0.71 mmol/L (0.7-2.1) 01/09/19 18:06 Calcium 8.83 mg/dL (8.4-10.2) 01/11/19 04:20 Total Bilirubin 0.42 mg/dL (0.2-1.3) 01/09/19 18:06 AST 11.8 U/L (17-59) L 01/09/19 18:06 ALT 5.4 U/L (0-50) 01/09/19 18:06 Alkaline Phosphatase 90.4 U/L (56-119) 01/09/19 18:06 Total Protein 6.92 g/dL (6.3-8.2) 01/09/19 18:06 Albumin 3.88 g/dL (3.5-5.0) 01/09/19 18:06 Globulin 3.04 01/09/19 18:06 Albumin/Globulin Ratio 1.27 01/09/19 18:06 Procalcitonin 0.06 ng/mL (<0.05) 01/09/19 18:00 WBC Trends 01/09/19 01/10/19 01/11/19 Range/Units 18:06 05:01 04:20 WBC 12.61 H 10.12 17.24 H D (4.2-10.2) K/ul H/H Trends 01/09/19 01/10/19 01/11/19 Range/Units 18:06 05:01 04:20 Hgb 13.0 L 14.1 12.9 L (14.0-18.0) g/dl Hct 40.7 L 44.3 39.8 L (42.0-52.0) % ABG: Personal interpretation: primary respiratory acidosis chronic with secondary metabolic alkalosis. CT Chest: Reported: ASVD without aneurysm, no e/o infiltrate or effusion, previously noted cavitary nodule within superior segment left lower lobe demonstrates minimal interstitial opacity, there is new left lower pulmonary nodule which merits f/u, cholelithiasis. Education Provided to Patient and Family: 1. Reviewed COPD meds with patient, he is on maximal therapy. Triple inhaler, Daliresp, home o2. 2. Smoking cessation: Praise given for his cessation over last 1 month 3. Candid discussion about Stage 4 End stage COPD with concern about lung cancer. He was worried about this as his parents of cancer and he does not want to that way. I asked if anyone talked with him about hospice, he noted that they had not. We discussed hospice, discussed end of life planning, POA, living will. He wanted to be DNR and we discussed this. He was made DNR during this hospital stay per his report. Follow-ups: 1. Pulmonology 01/13/19 2. Primary care doctor in 1 week. Disposition: HOME SELF-CARE Hospital Course: 63 yr old CM presented to [facility] ER 01/09/19 17:[address] met [address] with DR. Velasco and ultimately with DR. Meng. He reported several weeks worsening SOA, acute exacerbation of chronic COPD, chronic tobacco use, quit 1 month ago. Following with pulm, on triple inhaler, on daliresp, Stage4 COPD. He was seen in our ER 12/08/18 for similar complaints and was d/c home with abx, continue home o2 and breathing meds. ABG hypercapnic. At that visit he had SOA/cough/congestion x 2 weeks, [facility] w/ same sx and given (z jesus steroids and given a flu shot, which was odd due to steroid/flu shot combo). He had a WBC at that time of 14.63, lactic acid and procalc were negative, ABG 02 saturation 97, pH 7.376 , pco2 56.3, p02 95, hcoe 33, 3 L Oxy. Temp was normal 97.7, pulse 81, rr 25, BP 130/86, pulse ox 98%., troponin negative, Co2 on CMP was 37.3. CXR 12/08/18 hyperinflamted lungs suggested COPD, opacity in mid lung left. Cavitary nodule on prior CT 10/09/[address] chest with contrast recommended. Thus , before this hospitalization, he has been on zpak/steroids/minocycline. He noted that he never got 100% better and worsened over last 2 weeks, acutely worsening more over last 1 week and now with prominent weakness/SOA. He arrived in ER with temp 97.9, pulse 101, RR 20, BP 103/79, PO2 86%. Normally on home o2 (3L), known acute on chronic respiratory failure, difficulty maintaining saturations. Given neb upon arrival. WBC was 12.61, hgb 13.0, plt 260, mcv normocytic at 91.3. He has neutrophilia 9.4%. CMP showed normal sodium 136.5, K+ 4.07, creatinine 1.01 w/ GFR 74, glucose 90.5, AST 11.8 and low. ALT 5.4 and low. Alk phos normal 90.4. Albumin a little low at 3.88. Co2 high at 31.7 and cl low at 97.2. ABG showed primary respiratory acidosis with secondary metabolic alkalosis with pH 7.385, o2 saturation 81%, pc02 51.8, Po2 47 hc03 31 and fio2 21%. Lactic acid was negative. Blood cultures ordered, pending. No procalcitonin was ordered in ER, I did order that and it was negative. CT w/o infiltrate, cavitary nodule LLL, new LL pulm nodule. Patient is followed by [facility], recent PET scan. He presented with worsening weakness/SOA, Hypercapnic respiratory failure, no chest pain. EKG NSR, on tele. Patient was given option of returning to specialists at the [facility], he did not want this and he requested to stay at [facility]. I was then called for admit. I reviewed ER notes, he did meet SIRS criteria. I reviewed med list and noted minocyclyine/zpak recently. Chronic history of dyslipidemia, CAD, MO, COPD/Asthma, GERD, liver disease, multiple colon polyps, CKD, CVA, ANxiety, Depression, arthritis, stroke 2009 resulting in left sided facial droop. Right handed male. Surgeries include right hip replacement, umbilical hernia repair. Former smoker up to 1 month ago. Non productive cough worsening, NOLAND worse, Wheezing/Dizziness and weakness worse. Moderate respiratory distress +SIRS criteria based on HR but so far no e/o Sepsis as CT showed no infiltrate, he has been on steroids according to home meds with demargination and neutrophilia likely. After talking with him, he agreed that he wanted to be DNR. Code status was updated in our system. He does not know POA, he was going to call sister 01/10/19. SOA, NOLAND, worsening cough, cannot lay flat, has had to use 3 pillows. Prominent poor foot health, prominent barrel chest. Talks in disjointed sentences. I saw him room [facility] at 22:30-23: 45 not including documentation. With his history, foot pain, CAD status and recent information about aortic rupture risk with levaquin, I chose doxy 100 BID and rocephin 1 G daily for abx, continued solumedrol 125 q8 and titrated his oxygen to 92-98%. Lovenox 40mg subcutaneous used for DVT prophy. Between 01/09-01/10 Hospital day 2 he did well. Labs on day 2 showed mild hyperglycemia likely steroidal effect with glucose 142.6, sodium 136.9, K+ 4.63 , BUN 12.8 and cr 0.77 w/ GFR 102.6. Patient CBC looked better than admit with WBC 10.12, Hgb 14.1 (up from 13) and plt 293. BP overnight 103/79, 122/83, 118/ 75. Pulse 82-105 (82 this am), temp afebrile 97.9/98.6. Tele overnight SR. I looked at multiple strips personally and nothing concerning. Urine output 0.8ml /kg/hr. He was tolerating normal home 3 L oxygen with goal 92-98%. Eating well, drinking well, talking in full sentences. No BM in hospital stay. We continued duoneb QID, albuterol in between. On 01/11/19, day of d/c he continued to improve, was talking in full sentences, sitting at bedside. WBC has increased to 17.24, hgb 12.9, plt 3432. CMP showed sodium 135.8, K+ 4.63, CO2 31.4, BUN 19.9, Cr 0.89, glucose 132.5. Good uout with 1400ml 01/10/19 and 400 am 01/11/19. Afebrile entire hospital stay. He wanted to leave so that he could meet with pulmonology on sunday, felt back to how he did a few weeks ago. I will continue 5 more days of cefdinir 300 BID, doxy 100 BID and prednisone 40mg x 5 days. He will resume his triple therapy inhaled meds at d/c. He will meet with pulm on sunday to discuss options for his cavitary lesion and for Stage IV COPD. Repeat CBC in 1 week, f/u with PCP 1 week. Day of Discharge Physical Examination: Vital Signs - 24 hr 01/11/19 05:07 Temperature 97.9 F Pulse Rate 77 Respiratory 26 H Rate Blood Pressure 129/84 O2 Sat by Pulse 99 Oximetry Intake & Output 01/08/19 01/09/19 01/10/19 01/11/19 23:59 23:59 23:59 23:59 Intake Total 2220 930 Output Total 1400 400 Balance 820 530 Weight 205 lb 11.06 oz 205 lb Constitutional: Appearance- Still using abdominal breathing, no other accessory muscle use, not currently in respiratory distress, Orientation- Oriented x 3, alert Build and Nutrition-[BMI 26, thin appearing but prominent barrel chest] General- Patient is pleasant and cooperative with the interview sitting bedside talking in Nearly full sentences this am. Integumentary: General-No rashes, ulcers Prominent SK apex of scalp. Much less Diaphoretic, Head/Neck: Left sided facial droop noted. Chronic, unchanged. no tenderness about the head/neck. Eye: Unchanged, no conjunctival injection PERRLA and EOMI ENMT: Nose and sinus- No sinus tenderness along frontal/maxillary region. External appearance normal and midline. Nares- bilateral quiet airflow, no discharge. Nasal mucosa- No bleeding noted and no ulcerations observed. Erythematous, boggy Turbinates. Lips- normal color, moist without cracks/ lesions Oral Cavity/Palate- hard/soft palate intact without lesions, oral mucosa pink and moist. Oropharynx- no pharyngeal erythema, Uvula midline. No post nasal drip. No exudate. Salivary glands- Non tender to palpation CHEST/LUNG: Inspection- Chronically Increased effort, no distress on rounds this am. using abdominal muscles but it is hard to tell due to the barrel chest. O2 92-98 as recommended. Auscultation- Breath sounds diminished throughout all lung rossi. wheezing increased further throughout. tracheal sounds, bronchial sounds overlying sternum, Bronchovessicular sounds between scapulae posteriorly, vessicular breath sounds heard throughout periphery coarse and remain hard to hear but more Adventitious sounds today. Prominent wheezes distally, costal margin. Crackles bilateral bases. rhonchi mostly in bases. Upper lobes/apex coarse/distant. CARDIOVASCULAR: Carotid artery- normal, no bruits or abnormal pulsations. Abdomen no bruits. Palpation/Percussion- Displaced PMI inferior and to left chest. Unable to auscultate sounds in typical loci. I was again able to hear normal sounds just inferior to xyphoid process. no palpable thrill , no murmur. Auscultation- Regular rate and rhythm. No obvious murmur. No murmur radiation into axilla or carotid. Extremities- digital clubbing, NO cyanosis, No edema, NO increased warmth. ABDOMEN: Inspection- normal and no visible pulsations. Normal contour. Auscultation- Bowel sounds normal, no abdominal bruits. Palpation/Percussion- soft, non-tender, no rebound tenderness, no rigidity (guarding), no jar tenderness, no masses. Liver-no hepatomegaly, Spleen no splenomegaly, Hernias - none. Rectal not examined. Peripheral Vascular: Upper extremity Left- Normal temperature with pink nailbeds and no ulcerations. Upper extremity Right- Normal temperature with pink nailbeds and no ulcerations. Lower extremity- DP 1+. Callus prominently bilateral feet arch left>right loss of arch. Claw toes, onychomycosis, erythema bilateral base of feet. Poor foot health. Musculoskeletal: Generalized-No generalized swelling or edema of extremities, digital clubbing w/o cyanosis, neurovascularly intact all four extremities. Neurological: General- Moves all 4 extremities symmetrically. Right hand dominant but predominately using left arm, interestingly. Left facial droop stroke historically 2010. Reflexes normal. Asymmetrical face and normal body posture. Cranial nerves- individually evaluated II-XII PERRLA, Normal EOMI, visual/special senses appear intact, Face is asymmetrical with left sided chronic facial droop, not new. normal sensation/movement, normal tongue movement, normal strength/posture of neck musculature. As above unchanged from 01/09/19. Neuro exam same. Neuropsych: Oriented- Person, place, time. (AAOx3), Mood/affect- normal and congruent. Able to articulate well. Speech-Normal speech, normal rate, normal tone, normal use of language, volume and coherence. Thought content- normal with ability to perform basic computations and apply abstract thought/reason. Associations- intact, no SI/HI, no hallucinations, delusions, obsessions. Judgment/insight- Appropriate. Memory-Recall intact, remote and recent memory intact. Knowledge- Age appropriate fund of knowledge, concentration and attention span normal. Lymphatic: Head/Neck- normal size and non tender to palpation. Plan: 1. Discharge to home today. Keep follow-up appointment with Lung doctor on sunday. Follow up with PCP within next 7 days as well. 2. Home oxygen 3L to continue 3. We will continue steroids: - Prednisone 20mg 2 by mouth daily for 5 days. 4. Antibiotics - Doxycycline 100mg by mouth twice daily for 5 days - Cefdinir 300mg by mouth twice daily for 5 days. 5. Labs: Leaving hospital with elevated White Blood Cell Count likely due to steroids. - CBC and CMP in 1 week. 6. Meet with search engine optimization consultant (lung doctor) sunday Questions to ask Pulmonary Provider: - What did the PET scan show? - Can the lesion be biopsied? - Do you think the lesion can be surgically removed? - What kind of prognosis do I have with my current lung function and with the lesion? - Is hospice an option for my end stage COPD? - What is recommended for this chemo or radiation? WIll this extend my life? What will this do for my quality of life? 7. Resume home medications. 8. Resume normal diet 9. Resume normal activities as needed. 10. Return to ER if needed for worsening of breathing. >30 minutes spent in Discharge today. Patient left ambulatory, feeling much better.
== END 2019-01-11 11:00 | disposition home or self-care (01) | DRG 190 ==
LOC: ED 16:52 → MEDSURG B 21:57
PROVIDERS: ADMIT Family Medicine; ATTEND Family Medicine
DX: J44.1 Chronic obstructive pulmonary disease with (acute) exacerbation (principal); J96.02 Acute respiratory failure with hypercapnia; R65.10 Systemic inflammatory response syndrome (SIRS) of non-infectious origin without acute organ dysfunction; J98.4 Other disorders of lung; M54.5 Low back pain; E78.5 Hyperlipidemia, unspecified; F41.8 Other specified anxiety disorders; R06.00 Dyspnea, unspecified; R06.2 Wheezing; R42 Dizziness and giddiness; R53.1 Weakness; R05 Cough; Z72.0 Tobacco use; Z87.891 Personal history of nicotine dependence; Z86.73 Personal history of transient ischemic attack (TIA), and cerebral infarction without residual deficits
CPT/HCPCS: 36415; 80048; 80053; 82803; 83605; 84145; 85025; 87040; 93005; 93010; 94150; 94640; 96365; 96366; 96375; 99284; 99285

== ENCOUNTER 2019-02-01 21:28 | Outpatient (CLI) | END 2019-02-01 21:49 | disposition short-term general hospital (02) | LOC: AMBL 21:28 | PROVIDERS: ATTEND Family Medicine | DX: R06.03 Acute respiratory distress (principal); Z98.890 Other specified postprocedural states; R00.0 Tachycardia, unspecified ==